=== PATIENT | female | born 1950 | race Caucasian/White ===

== ENCOUNTER 2020-09-13 22:07 | Observation (INO) | payer OTHER ==
--- OUTSIDE RECORDS SUMMARY | 2020-09-13 22:10 | XMS REPORT | Continuity of Care Document ---
:1950 Author Organization [facility] t Address [address] [place] [address] Dr. Zhang [address] [place] [id number] Care Team Providers Name Role Phone Unavailable Unavailable Unavailable Problems This patient has no known problems. Allergies, Adverse Reactions, Alerts This patient has no known allergies or adverse reactions. Medications This patient has no known medications. Procedures This patient has no known procedures. Results This patient has no known results.
[2020-09-13 23:56] LABS: Absolute Lymphocytes (CBC) 1.5 K/uL (0.7-4.9); Basophils % 1.3 % (0-1.3); Hematocrit 37.2 % (36.0-45.0); Lymphocytes % 25.3 % (15.3-44.8); MPV 7.3 fL (7.6-11.3); RBC Red Blood Cell Count 4.48 M/uL (3.86-4.86)
[2020-09-14 00:05] LABS: Protime INR 0.94
[2020-09-14] MEDS ORDERED: ASPIRIN 81 MG CHEWABLE TABLET ONE (00:12)
[2020-09-14] MEDS ORDERED: NITROGLYCERIN 0.4 MG/TAB SL ONE (00:13)
[2020-09-14] MEDS ORDERED: NA CHLORIDE 0.9% 500 ML ONE (00:13)
[2020-09-14 00:15] LABS: ALT/SGPT 25 U/L (12-78); AST/SGOT 25 U/L (15-37); Albumin 3.7 g/dL (3.4-5.0); Alkaline Phosphatase 109 U/L (45-117); BUN Blood Urea Nitrogen 21 mg/dL (7-18); Bicarbonate 29 mmol/L (21-32); Bilirubin Direct < 0.1 mg/dL (0-0.2); Bilirubin Total 0.2 mg/dL (0.2-1.0); Glucose Level 106 mg/dL (74-106); Magnesium 2.1 mg/dL (1.8-2.4); NT PRO-BNP 118 pg/mL (<125); Potassium 3.7 mmol/L (3.5-5.1); Protein, Total 7.1 g/dL (6.4-8.2); Sodium Level 141 mmol/L (136-145); Troponin (Emerg Dept Use Only) < 0.02 ng/mL (0.0-0.045)
[2020-09-14] MEDS ORDERED: ATROPINE SULF 1 MG/10 ML SYR IV ONE (00:26)
[2020-09-14] MEDS ORDERED: ONDANSETRON 4 MG/2 ML VIAL ONE (00:30)
[2020-09-14] MEDS ORDERED: MORPHINE 4 MG/ML SYR ONE (00:36)
[2020-09-14] MEDS ORDERED: NA CHLORIDE 0.9% 1,000 ML ONE (00:47)
--- NOTE | 2020-09-14 01:29 | ER ---
Nurse's Notes [facility] Name: Vandana Gar Age: 70 yrs Sex: Female : 1950 Arrival Date: 09/13/2020 Time: 22:10 Bed 25 Private MD: Diagnosis: Chest pain, unspecified Presentation: 09/13 22:34 Chief complaint: Patient states: Chest pain that began about 1 hour ago, reports lp1 epigastric pain, and upper back pain; Reports checked BP at home and 200 systolic. Coronavirus screen: Client denies travel out of the [place] in the last 14 days. At this time, the client does not indicate any symptoms associated with coronavirus-19. Ebola Screen: No symptoms or risks identified at this time. Risk Assessment: Do you want to hurt yourself or someone else? Patient reports no desire to harm self or others. Onset of symptoms was September 13, 2020 at 21:00. 22:34 Method Of Arrival: Wheelchair lp1 22:34 Acuity: LEIDA 3 lp1 22:38 Initial Sepsis Screen: Does the patient meet any 2 criteria? No. Patient's initial lp1 sepsis screen is negative. Does the patient have a suspected source of infection? No. Patient's initial sepsis screen is negative. Historical: - Allergies: 22:37 No Known Allergies; lp1 - PMHx: 22:37 hypertension; lp1 - PSHx: 22:37 hysterctomy; lp1 - Immunization history:: Adult Immunizations up to date. - Social history:: Smoking status: Patient denies any tobacco usage or history of. Screenin:50 Abuse screen: Denies threats or abuse. Denies injuries from another. Nutritional bs2 screening: No deficits noted. Tuberculosis screening: No symptoms or risk factors identified. Fall Risk None identified. Assessment: 22:50 General: Appears in no apparent distress. uncomfortable, obese, well groomed, well bs2 developed, well nourished, Behavior is calm, cooperative, appropriate for age. Pain: Complains of pain in xiphoid area Pain radiates to back Pain currently is 6 out of 10 on a pain scale. Pain began suddenly, 1 hour ago. Neuro: No deficits noted. Cardiovascular: Reports chest pain, Denies diaphoresis, nausea, palpitations, shortness of breath, Capillary refill < 3 seconds Chest pain is located in epigastric area radiates back. Respiratory: No deficits noted. GI: No deficits noted. : No deficits noted. EENT: No deficits noted. 09/14 00:15 Reassessment: Patient states symptoms have not improved. at 2359 alarm was noted at bs2 that pt was becoming bradycardic dropping to 38 from 60's, BP was also dropping 76 systolic pt became pale diaphoretic, both ER providers were immediately notified crash cart was retrieved and pt hooked to pad, atropine was also ordered and administered. . 00:30 Reassessment: Patient states feeling better. Patient states symptoms have improved. pt bs2 color is returning to normal, HR has sustained in the 70's since atropine. 01:30 Reassessment: Patient and/or family updated on plan of care and expected duration. Pain bs2 level reassessed. Patient states feeling better. Patient states symptoms have improved. pt feeling back to normal, pain has subsided, heart rate still in 70's. Vital Signs: 09/13 22:38 BP 197 / 81; Pulse 91; Resp 18; Temp 97.3(TE); Pulse Ox 100% on R/A; Weight 75.3 kg lp1 (R); Height 5 ft. 4 in. (162.56 cm); Pain 4/10; 23:45 BP 190 / 70; Pulse 54; Resp 13; Pulse Ox 100% on R/A; lp1 23:50 BP 199 / 81; Pulse 61; Resp 16; Pulse Ox 100% ; Pain 6/10; bs2 09/14 00:02 BP 73 / 62; Pulse 45; Resp 18; Pulse Ox 96% on R/A; lp1 00:08 BP 146 / 75; Pulse 71; Resp 14; Pulse Ox 98% on R/A; lp1 00:20 BP 165 / 83; Pulse 71; Resp 16; Pulse Ox 98% on R/A; lp1 01:00 BP 152 / 73; Pulse 71; Resp 12; Pulse Ox 97% on R/A; lp1 02:00 BP 139 / 64; Pulse 65; Resp 15; Pulse Ox 95% on R/A; lp1 09/13 22:38 Body Mass Index 28.49 (75.30 kg, 162.56 cm) lp1 ED Course: 09/13 22:10 Patient arrived in ED. bp1 22:37 Triage completed. lp1 22:37 Arm band placed on right wrist. lp1 22:39 Patient maintains SpO2 saturation greater than 95% on room air. lp1 22:50 Warm blanket given. bs2 23:00 Patient has correct armband on for positive identification. Placed in gown. Cardiac lp1 monitor on. Pulse ox on. NIBP on. 23:11 Danial Kelely PA is PHCP. cp 23:11 Akash De Leon MD is Attending Physician. cp 23:15 Inserted saline lock: 20 gauge in right antecubital area, using aseptic technique. bs2 23:25 Sherry Nunez, FLOYD is Primary Nurse. bs2 23:26 XRAY Chest (1 view) Sent. bs2 23:50 XRAY Chest (1 view) In Process Unspecified. EDMS 23:57 Lipase Sent. bs2 23:57 Basic Metabolic Panel Sent. bs2 23:57 CBC with Diff Sent. bs2 23:57 LFT's Sent. bs2 23:57 Magnesium Sent. bs2 23:57 NT PRO-BNP Sent. bs2 23:57 PT-INR Sent. bs2 23:57 Troponin (emerg Dept Use Only) Sent. bs2 09/14 00:59 CT Aorta for Dissection In Process Unspecified. EDMS 01:28 Trent Powers MD is Hospitalizing Provider. cp 03:30 No provider procedures requiring assistance completed. Patient admitted, IV remains in bs2 place. Administered Medications: 09/13 23:55 Drug: Nitroglycerin 0.4 mg Route: Sublingual; bs2 09/14 01:12 Follow up: Response: Adverse reaction, Physician notified; Blood pressure is lowered; bs2 Cardiac rhythm changed 09/13 23:56 Drug: NS 0.9% 500 ml Route: IV; Rate: 500 ml/hr; Site: right antecubital; bs2 09/14 00:31 Follow up: IV Status: Completed infusion bs2 09/13 23:57 Drug: Aspirin Chewable Tablet 324 mg Route: PO; bs2 09/14 01:12 Follow up: Response: No adverse reaction bs2 00:05 Drug: NS 0.9% 1000 ml Route: IV; Rate: 1000 ml; Site: left antecubital; bs2 05:48 Follow up: IV Status: Completed infusion bs2 00:05 Drug: Atropine 0.5 mg Route: IVP; Site: right antecubital; bs2 00:15 Follow up: Response: No adverse reaction bs2 00:08 Drug: Zofran (Ondansetron) 4 mg Route: IVP; Site: right antecubital; bs2 00:20 Follow up: Response: No adverse reaction bs2 Outcome: 01:29 Decision to Hospitalize by Provider. cp 04:00 Admitted to ER Hold. Please see [facility] for further documentation. lp1 04:00 Condition: stable 04:00 Instructed on the need for admit. 21:18 Patient left the ED. bb Signatures: Dispatcher [employer] EDMS Leila Sierra RN RN bb Giuliana Gonzalez RN RN lp1 Danial Kelley PA PA cp Paniauga, Brittany bp1 Smith, Bridget, RN RN bs2 Corrections: (The following items were deleted from the chart) 00:43 09/13 23:57 CORONAVIRUS+MR.LAB.BRZ drawn and sent. bs2 EDMS 09/14 06:31 06:24 Reassessment: Patient states symptoms have not improved. at 2359 alarm was noted bs2 at that pt was becoming bradycardic dropping to 38 from 60's, BP was also dropping 76 systolic pt became pale diaphoretic, both ER providers were immediately notified crash cart was retrieved and pt hooked to pad, atropine was also ordered and administered. . bs2
--- NOTE | 2020-09-14 01:29 | EDPHYS ---
Physician Documentation [facility] Name: Vandana Gar Age: 70 yrs Sex: Female : 1950 Arrival Date: 09/13/2020 Time: 22:10 Bed 25 Private MD: ED Physician Akash De Leon HPI: 09/13 23:20 This 70 yrs old Female presents to ER via Wheelchair with complaints of High cp Blood Pressure, Chest Pain > 30 y/o. 23:20 The patient or guardian reports chest pain that is located primarily in the substernal cp area, epigastric area. 23:20 Onset: today. The patient has elevated blood pressure and discovered this at home, with cp a home device. Onset: The symptoms/episode began/occurred today. The pain radiates to back. Associated signs and symptoms: Pertinent negatives: dizziness, headache, vomiting, weakness. The chest pain is described as constant. Duration: The patient or guardian reports a single episode, that is still ongoing, and unchanged. Historical: - Allergies: 22:37 No Known Allergies; lp1 - PMHx: 22:37 hypertension; lp1 - PSHx: 22:37 hysterctomy; lp1 - Immunization history:: Adult Immunizations up to date. - Social history:: Smoking status: Patient denies any tobacco usage or history of. ROS: 23:25 Cardiovascular: Positive for chest pain, of the lower chest, Negative for edema, cp palpitations. 23:25 Eyes: Negative for injury, pain, redness, and discharge. cp 23:25 Constitutional: Negative for body aches, fever, poor PO intake. 23:25 ENT: Negative for ear pain, sore throat, difficulty swallowing, difficulty handling secretions. 23:25 Respiratory: Negative for cough, shortness of breath, wheezing. 23:25 Abdomen/GI: Negative for vomiting, diarrhea, constipation. 23:25 Back: Positive for radiated pain. 23:25 Skin: Negative for rash. 23:25 Neuro: Negative for altered mental status, dizziness, headache, numbness, syncope, weakness. 23:25 All other systems are negative. Exam: 23:28 Constitutional: The patient appears in no acute distress, alert, awake, cp non-diaphoretic, non-toxic, well developed, well nourished, uncomfortable. 23:28 Head/Face: Normocephalic, atraumatic. cp 23:28 Eyes: Periorbital structures: appear normal, Conjunctiva: normal, no exudate, no injection, Sclera: no appreciated abnormality, Lids and lashes: appear normal, bilaterally. 23:28 ENT: External ear(s): are unremarkable, Nose: is normal, Mouth: Lips: moist, Oral mucosa: moist, Posterior pharynx: Airway: no evidence of obstruction, patent. 23:28 Neck: ROM/movement: is normal, is supple, without pain, no range of motions limitations. 23:28 Chest/axilla: Inspection: normal, Palpation: is normal, no crepitus, no tenderness. 23:28 Cardiovascular: Rate: normal, Rhythm: regular, Edema: is not appreciated, JVD: is not appreciated. 23:28 Respiratory: the patient does not display signs of respiratory distress, Respirations: normal, no use of accessory muscles, no retractions, labored breathing, is not present, Breath sounds: are clear throughout, no decreased breath sounds, no stridor, no wheezing. 23:28 Abdomen/GI: Inspection: abdomen appears normal, Bowel sounds: active, all quadrants, Palpation: abdomen is soft and non-tender, in all quadrants, rebound tenderness, is not appreciated, voluntary guarding, is not appreciated, involuntary guarding, is not appreciated. 23:28 Back: pain, that is mild, ROM is normal. 23:28 Skin: no rash present. 23:28 Neuro: Orientation: to person, place \T\ time. Mentation: is normal, Cerebellar function: is grossly normal, Motor: moves all fours, strength is normal, Sensation: is normal. 23:30 ECG was reviewed by the Attending Physician. cp Vital Signs: 22:38 BP 197 / 81; Pulse 91; Resp 18; Temp 97.3(TE); Pulse Ox 100% on R/A; Weight 75.3 kg lp1 (R); Height 5 ft. 4 in. (162.56 cm); Pain 4/10; 23:45 BP 190 / 70; Pulse 54; Resp 13; Pulse Ox 100% on R/A; lp1 23:50 BP 199 / 81; Pulse 61; Resp 16; Pulse Ox 100% ; Pain 6/10; bs2 09/14 00:02 BP 73 / 62; Pulse 45; Resp 18; Pulse Ox 96% on R/A; lp1 00:08 BP 146 / 75; Pulse 71; Resp 14; Pulse Ox 98% on R/A; lp1 00:20 BP 165 / 83; Pulse 71; Resp 16; Pulse Ox 98% on R/A; lp1 01:00 BP 152 / 73; Pulse 71; Resp 12; Pulse Ox 97% on R/A; lp1 02:00 BP 139 / 64; Pulse 65; Resp 15; Pulse Ox 95% on R/A; lp1 09/13 22:38 Body Mass Index 28.49 (75.30 kg, 162.56 cm) lp1 MDM: 09/13 23:12 Patient medically screened. cp 23:35 Differential diagnosis: abnormal EKG, acute myocardial infarction, acute pericarditis, cp cholecystitis, Cholelithiasis hypertensive crisis, Malignant HTN, pancreatitis, pneumothorax, pulmonary embolus, stable angina, thoracic aortic disection, unstable angina. 09/14 00:45 The patient was given aspirin in the Emergency Department. cp 01:53 Data reviewed: vital signs, nurses notes, lab test result(s), EKG, radiologic studies, cp CT scan, plain films, and as a result, I will admit patient. 09/13 23:11 Order name: Basic Metabolic Panel; Complete Time: 00:22 cp 09/14 00:24 Interpretation: Normal except: BUN 21; GFR 56. cp 09/13 23:11 Order name: CBC with Diff; Complete Time: 00:22 cp 09/14 00:24 Interpretation: Normal except: MPV 7.3. cp 09/13 23:11 Order name: LFT's; Complete Time: 00:22 cp 09/13 23:11 Order name: Magnesium; Complete Time: 00:22 cp 09/13 23:11 Order name: NT PRO-BNP; Complete Time: 00:22 cp 09/13 23:11 Order name: PT-INR; Complete Time: 00:24 cp 09/13 23:11 Order name: Troponin (emerg Dept Use Only); Complete Time: 00:22 cp 09/13 23:26 Order name: Lipase; Complete Time: 00:22 cp 09/14 01:42 Order name: SARS-COV-2 RT PCR; Complete Time: 01:53 EDMS 09/14 01:53 Interpretation: Results reviewed. cp 09/14 06:24 Order name: Urinalysis [facility] 09/14 06:44 Order name: Basic Metabolic Panel [facility] 09/14 06:47 Order name: Troponin I [facility] 09/14 06:47 Order name: Lipid Profile [facility] 09/13 23:11 Order name: XRAY Chest (1 view) 09/13 23:11 Order name: EKG; Complete Time: 23:12 cp 09/13 23:11 Order name: Cardiac monitoring; Complete Time: 23:57 cp 09/14 00:23 Order name: CT Aorta for Dissection 09/14 06:47 Order name: T4 Free [facility] 09/14 06:47 Order name: Lipase [facility] 09/14 06:47 Order name: Thyroid Stimulating Hormone [facility] 09/14 08:00 Order name: Urine Microscopic Only [facility] 09/14 11:28 Order name: Troponin I [facility] 09/14 18:07 Order name: Troponin I [facility] 09/13 23:11 Order name: EKG - Nurse/Tech; Complete Time: 23:26 cp 09/13 23:11 Order name: IV Saline Lock; Complete Time: 23:57 cp 09/13 23:11 Order name: Labs collected and sent; Complete Time: 23:57 09/13 23:11 Order name: O2 Per Protocol; Complete Time: 23:26 cp 09/13 23:11 Order name: O2 Sat Monitoring; Complete Time: 23:26 cp EC/24 23:30 Rate is 70 beats/min. Rhythm is regular. SC interval is normal. QRS interval is normal. cp QT interval is normal. T waves are Inverted in lead aVR. Interpreted by me. Reviewed by me. Administered Medications: 23:55 Drug: Nitroglycerin 0.4 mg Route: Sublingual; bs2 09/14 01:12 Follow up: Response: Adverse reaction, Physician notified; Blood pressure is lowered; bs2 Cardiac rhythm changed 09/13 23:56 Drug: NS 0.9% 500 ml Route: IV; Rate: 500 ml/hr; Site: right antecubital; bs2 09/14 00:31 Follow up: IV Status: Completed infusion bs2 09/13 23:57 Drug: Aspirin Chewable Tablet 324 mg Route: PO; bs2 09/14 01:12 Follow up: Response: No adverse reaction bs2 00:05 Drug: NS 0.9% 1000 ml Route: IV; Rate: 1000 ml; Site: left antecubital; bs2 05:48 Follow up: IV Status: Completed infusion bs2 00:05 Drug: Atropine 0.5 mg Route: IVP; Site: right antecubital; bs2 00:15 Follow up: Response: No adverse reaction bs2 00:08 Drug: Zofran (Ondansetron) 4 mg Route: IVP; Site: right antecubital; bs2 00:20 Follow up: Response: No adverse reaction bs2 Disposition: 09/15 04:31 Co-signature as Attending Physician, Akash De Leon MD. [email or web address] Disposition Summary: 09/14/20 01:29 Hospitalization Ordered Hospitalization Status: Observation cp Provider: Trent Powers cp Condition: Stable cp Problem: new cp Symptoms: have improved cp Bed/Room Type: Standard cp Location: Telemetry/MedSurg (observation)(09/14/20 19:23) cg Room Assignment: [facility](09/14/20 19:23) Diagnosis - Chest pain, unspecified cp Forms: - Medication Reconciliation Form cp - SBAR form cp Signatures: Dispatcher [employer] EDMS Giuliana Gonzalez RN RN lp1 Danial Kelley PA PA cp Dominique Scott, RN RN Akash De Leon MD MD [email or web address] Sherry Nunez RN RN bs2 Corrections: (The following items were deleted from the chart) 09/14 00:43 09/13 23:26 CORONAVIRUS+MR.LAB.BRZ ordered. [facility] 09/14 03:37 01:29 Telemetry/MedSurg (observation) cp cg 03:37 01:29 cp cg 19:23 03:37 [facility] ER HOLD cg cg 19:23 03:37 ERHOLD- cg cg
--- NOTE | 2020-09-14 02:52 | P.HP ---
Certification for Inpatient Patient admitted to: Observation With expected LOS: <2 Midnights Patient will require the following post-hospital care: None Practitioner: I am a practitioner with admitting privileges, knowledge of patient current condition, hospital course, and medical plan of care. Services: Services provided to patient in accordance with Admission requirements found in Title 42 Section 412.3 of the Code of Federal Regulations <RubymonicaZi - Last Filed: 09/14/20 02:48> Patient History Date of Service: 09/14/20 Primary Care Provider: Dr. Treadwell Reason for admission: Chest pain History of Present Illness: 70-year-old female with history of hypertension presents emergency department for chest pain. 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 Patient was evaluated in the emergency department, EKG without ST elevations, chest x-ray unremarkable, labs also unremarkable. Patient was noted to be hypertensive with systolic around 200 upon arrival. Patient was given nitroglycerin in the emergency department p.o. and developed bradycardia, hypotension. Patient recovered from this well and vital signs are currently stable and chest pain- free. Initial troponin negative. Patient had CT dissection protocol which demonstrated numerous bilateral subpleural pulmonary nodules up to 4 mm which are likely infectious or inflammatory, no routine follow-up recommended also noted large right thyroid nodule, CT abdomen pelvis demonstrates gastric thickening suggestive of mild gastritis or peristalsis as well as mild thickening of the colon at the hepatic flexure. This was all discussed with patient. ED per wishes to me for further evaluation and management of chest pain. Patient reports last stress test approximately 3 years ago. Has never had heart catheterization. - Past Medical/Surgical History -: Hypertension -: Hysterectomy -: Parathyroidectomy -: Ankle surgery -: Carpal tunnel surgery Psychosocial/ Personal History: Retired, lives at home with - Family History Father -: Hypertension, Cancer Mother -: Heart disease, Cancer Brother -: Cancer - Social History Smoking Status: Never smoker Alcohol use: No CD- Drugs: No Caffeine use: Yes Place of Residence: Home <Zi Miguel - Last Filed: 09/14/20 02:48> Date of Service: 09/14/20 <Trent Powers - Last Filed: 09/14/20 16:33> Review of Systems 10-point ROS is otherwise unremarkable Cardiovascular: Chest Pain, As per HPI <Zi Miguel - Last Filed: 09/14/20 02:48> Physical Examination - Physical Exam General: Alert, In no apparent distress, Oriented x3 HEENT: Atraumatic, PERRLA, Mucous membr. moist/pink Neck: Supple, 2+ carotid pulse no bruit, No LAD Respiratory: Clear to auscultation bilaterally, Normal air movement Cardiovascular: Regular rate/rhythm, Normal S1 S2 Gastrointestinal: Normal bowel sounds, No tenderness Musculoskeletal: No tenderness Integumentary: No rashes Neurological: Normal speech, Normal strength at 5/5 x4 extr, Normal tone, Normal affect - Studies Laboratory Data (last 24 hrs) 09/13/20 23:46: Lipase 212 09/13/20 23:46: PT 10.8, INR 0.94 09/13/20 23:46: WBC 5.80, Hgb 12.4, Hct 37.2, Plt Count 271 09/13/20 23:46: Sodium 141, Potassium 3.7, BUN 21 H, Creatinine 0.98, Glucose 106, Magnesium 2.1, Total Bilirubin 0.2, AST 25, ALT 25, Alkaline Phosphatase 109 <Zi Miguel - Last Filed: 09/14/20 02:48> - Studies Laboratory Data (last 24 hrs) 09/13/20 23:46: Lipase 212 09/13/20 23:46: PT 10.8, INR 0.94 09/13/20 23:46: WBC 5.80, Hgb 12.4, Hct 37.2, Plt Count 271 09/13/20 23:46: Sodium 141, Potassium 3.7, BUN 21 H, Creatinine 0.98, Glucose 106, Magnesium 2.1, Total Bilirubin 0.2, AST 25, ALT 25, Alkaline Phosphatase 109 <Trent Powers - Last Filed: 09/14/20 16:33> Assessment and Plan - Plan Assessment: Chest pain rule out ACS Hypertension Incidental findings including pulmonary nodules measuring up to 4 mm, large right thyroid nodule, mild wall thickening of the colon at the hepatic flexure Plan: Chest pain rule out ACS: Trend troponins, monitor on telemetry, cardiology consult in place. Continue with daily aspirin, statin, beta-aries therapy. Obtain continue other home medications for hypertension. Gastritis noted on CT scan, will also treat with Protonix. Appreciate further input from cardiology, last stress test approximately 3 years ago, patient has never had heart catheterization. Hypertension: Obtain continue medications, adjust as necessary. Patient reports a few episodes similar in the past with uncontrolled hypertension for unknown reason which seemed to resolve. Incidental findings including pulmonary nodules measuring up to 4 mm, large right thyroid nodule, mild wall thickening of the colon at the hepatic flexure: These were all discussed with patient, recommend outpatient ultrasound of thyroid and colonoscopy, patient has colonoscopy scheduled for next year. Pulmonary nodules mentioned no recommended follow-up at this time. DVT PPX: Code status: Discharge Plan: Home Plan to discharge in: 24 Hours - Advance Directives Does patient have a Living Will: No Does patient have a Durable POA for Healthcare: No - Code Status/Comfort Care Code Status Assessed: Yes (Full code) Critical Care: No Time Spent Managing Pts Care (In Minutes): 55 <Zi Miguel - Last Filed: 09/14/20 02:48> - Plan Patient seen and examined this morning Having mild left chest discomfort, trop negative x 2 vitals stable nothing seems to aggravate this pain CT with incidental multiple pulm nodules, no PE she does have risk factors for ACS Cardiology recommends to obtain stress test tomorrow <Trent Powers - Last Filed: 09/14/20 16:33>
[2020-09-14] MEDS ORDERED: SODIUM CHLORIDE 0.9% 10ML INJ IV PRN (03:51)
[2020-09-14] MEDS ORDERED: ACETAMINOPHEN 500 MG TAB PO PRN (03:51)
[2020-09-14] MEDS ORDERED: MORPHINE 2 MG/ML SYR IV PRN (03:51)
[2020-09-14] MEDS ORDERED: ONDANSETRON 4 MG/2 ML VIAL IV PRN (03:51)
[2020-09-14] MEDS ORDERED: METOPROLOL TAR 25 MG TAB PO SCH (06:00)
[2020-09-14 06:20] LABS: Urine Appearance CLEAR (Clear); Urine Bilirubin NEGATIVE (Negative); Urine Blood NEGATIVE (Negative); Urine Color YELLOW (Yellow); Urine Glucose NEGATIVE (Negative); Urine Protein NEGATIVE (Negative); Urine Specific Gravity 1.015 (1.005-1.030); Urine Urobilinogen 0.2 mg/dL (0.2-1.0)
[2020-09-14 06:24] LABS: Urine Microscopic Reflex ORDER UMIC
[2020-09-14 06:47] LABS: Thyroid Stimulating Hormone 1.58 uIU/mL (0.360-3.740); Troponin I 0.02 ng/mL (0.0-0.045)
[2020-09-14] MEDS ORDERED: PANTOPRAZOLE 40 MG INJ ONE (07:43)
[2020-09-14] MEDS ORDERED: ASPIRIN EC 81 MG TAB PO ONE (07:43)
[2020-09-14] MEDS ORDERED: ENOXAPARIN 40 MG/0.4 ML SQ ONE (07:43)
--- NOTE | 2020-09-14 07:52 | RAD REPORT ---
EXAM DESCRIPTION: RAD - Chest Single View - 09/13/2020 11:50 pm CLINICAL HISTORY: CHEST PAIN COMPARISON: No comparisons FINDINGS: No evidence of edema or pneumonia. Mild cardiomegaly.No acute osseous abnormality. No sign ificant pleural effusions or pneumothorax. IMPRESSION: No acute cardiopulmonary disease.
[2020-09-14] MEDS: ASPIRIN EC 81 MG TAB PO SCH (07:57)
[2020-09-14] MEDS: PANTOPRAZOLE 40 MG INJ IVP SCH (07:57)
[2020-09-14] MEDS: ENOXAPARIN 40 MG/0.4 ML SQ SCH (07:57)
[2020-09-14 08:00] LABS: Urine Bacteria <20 /HPF (<20); Urine RBC <5 /HPF (NONE SEEN)
[2020-09-14] MEDS: hydroCHLOROthiazide 12.5 MG CAP PO SCH (08:02)
[2020-09-14] MEDS ORDERED: hydroCHLOROthiazide 25 MG TAB ONE (08:24)
--- NOTE | 2020-09-14 14:48 | CON ---
Date of Consultation: 09/14/2020 Reason For Consultation: Chest pain. History Of Present Illness: A 70-year-old female presented to the emergency room with chest pain, wa s sudden, pressure-like, radiating to both arms, lasted for about 2 hours, and then her blood pressur e was very high on arrival about 200 and given nitroglycerin, developed bradycardia and hypertension on that. She is chest-pain free at this moment. Denies having any shortness of breath, nausea, or v omiting. Had a stress test about 3 years ago as per report. Past Medical History: As outlined above with HPI. Medications: Refer to reconciliation sheet for detailed list. Allergies: NITROGLYCERINE PER CHART. Family History: Coronary artery disease on mother's side. Review of Systems: All systems reviewed and they are negative except for what is mentioned in the HPI. Social History: Does not smoke or drink. Does not use any drugs. Physical Examination: Vital Signs: Temperature is 98.0, pulse 63, breathing at 12, blood pressure is 134/62, saturating 97 %. General: Pleasant elderly female, in no distress. Head and Neck: Pupils are equal, reactive to light. Intact eye movements. No JVD. No cervical lym phadenopathy. Neck: Supple. Thyroid is not enlarged. Lungs: Clear to auscultation bilaterally. No rhonchi, rales, or crackles. No accessory muscle use. Heart: Regular rate and rhythm. No extra sounds. Abdomen: Soft, nontender. Bowel sounds positive. No organomegaly. No rigidity or rebound. Extremities: No edema, clubbing, or cyanosis. Intact pulses. Skin: No rash. Neurologic: Alert, awake, oriented x3. No acute focal deficits appreciated. Investigations: Troponin is less than 0.02. Creatinine 0.87. Hemoglobin is 12.4. EKG without acut e specific abnormalities. Assessment And Plan: Chest pain. This could be indicative of unstable angina. I recommend exercise nuclear stress test and echocardiogram prior to discharge and further plan accordingly. Start on as pirin, beta-aries, and high-dose statin and further trend troponin. Thank you for the consult. /SAMI Voice ID: [id number] Report ID: [id number]
--- NOTE | 2020-09-14 17:21 | RAD REPORT ---
EXAM DESCRIPTION: CT - Angio Aorta For Dissection - 09/14/2020 6:04 am COMPARISON: None. CLINICAL HISTORY: CHEST PAIN TECHNIQUE: CTA of the chest, abdomen and pelvis was acquired with IV contrast material. Coronal and sagittal reconstructions were obtained. 3D arterial reconstructions were performed at a separate work station. Automated exposure control was utilized on this examination as a dose lowering technique. CTA FINDINGS: No dissection or aneurysm. No occlusion or significant stenosis. Mild multivessel calc ified atherosclerosis. NONVASCULAR CHEST FINDINGS: Heart and mediastinum: Heart size is normal. No lymphadenopathy. Calcifi ed right hilar granulomas are noted. Thyroid gland: 4.1 cm right thyroid nodule. Lungs: Numerous bilateral subpleural pulmonary nodules measure up to 4 mm. Airways: No filling defects. No bronchiectasis. Pleura: No pneumothorax. No significant pleural effusion. Musculoskeletal and soft tissues: Within normal limits for age. CHEST IMPRESSION: 1. Numerous bilateral subpleural pulmonary nodules measure up to 4 mm are likely i nfectious or inflammatory. No routine follow-up imaging is recommended based on size. 2. Large right thyroid nodule. Recommend thyroid ultrasound. NONVASCULAR ABDOMEN & PELVIS FINDINGS: Liver: Small hepatic hypodensities likely represent benign cy sts or hemangiomas. Gallbladder and biliary: Normal gallbladder. Unremarkable biliary tree. Pancreas: Normal. Spleen: Normal. Kidneys and adrenal glands: Normal adrenal glands. Small right renal cyst. Stomach and Small Bowel: Mild gastric antral wall thickening is present. Normal small bowel. Urinary bladder: Normal. Uterus and Adnexa: Hysterectomy. Colon and Appendix: Moderate sigmoid diverticulosis. Mild wall thickening of the colon at the hepatic flexure. No evidence of appendicitis. Peritoneal cavity: No ascites or free air. Retroperitoneum and lymph nodes: Normal. Musculoskeletal and soft tissues: Soft tissues are unremarkable. Lumbar spondylosis. No aggressive jesusita ne lesions. No compression fracture. ABDOMEN AND PELVIS IMPRESSION: 1. Mild gastric antral wall thickening may be due to peristalsis or m ild gastritis. 2. Mild wall thickening of the colon at the hepatic flexure is likely due to decompression, however c olonoscopy is recommended if not recently performed. Moderate diverticulosis of the sigmoid colon is also present. Electronically signed by: Arsenio Rodriguez MD 09/14/2020 1:22 AM CDT Due to temporary technical issues with the PACS/Fluency reporting system, reports are being signed by the in house radiologists without review as a courtesy to insure prompt reporting. The interpreting radiologist is fully responsible for the content of the report.
[2020-09-14 20:17] VITALS: O2SAT 97
[2020-09-14] MEDS ORDERED: ATORVASTATIN 20 MG TAB ONE (20:44)
[2020-09-14] MEDS ORDERED: ATORVASTATIN 20 MG TAB PO SCH (21:00)
[2020-09-14 21:42] VITALS: BMI 28.0
[2020-09-15 06:43] LABS: Absolute Lymphocytes (CBC) 1.7 K/uL (0.7-4.9); Hematocrit 35.2 % (36.0-45.0); Lymphocytes % 26.1 % (15.3-44.8); MPV 7.5 fL (7.6-11.3); RBC Red Blood Cell Count 4.22 M/uL (3.86-4.86)
[2020-09-15 07:13] LABS: Albumin 3.4 g/dL (3.4-5.0); Bilirubin Total 0.4 mg/dL (0.2-1.0); Potassium 3.9 mmol/L (3.5-5.1); Protein, Total 6.5 g/dL (6.4-8.2)
[2020-09-15] MEDS: hydroCHLOROthiazide 12.5 MG CAP PO SCH (08:36)
[2020-09-15] MEDS: ASPIRIN EC 81 MG TAB PO SCH (08:36)
[2020-09-15] MEDS: ENOXAPARIN 40 MG/0.4 ML SQ SCH (08:37)
[2020-09-15] MEDS: PANTOPRAZOLE 40 MG INJ IVP SCH (08:37)
[2020-09-15 13:57] VITALS: BP 141/80; TEMP 97.6
--- NOTE | 2020-09-15 17:10 | P.DS ---
Admission Date: 09/14/20 Discharge Date: 09/15/20 Primary Care Provider: Dr. Treadwell Disposition: ROUTINE DISCHARGE Discharge Condition: GOOD Reason for Admission: Chest pain Consultations: Cardiology - Dr. Aguilera. Dr. Parry Procedures: Chest Single View - 09/13/2020 11:50 pm FINDINGS: No evidence of edema or pneumonia. Mild cardiomegaly.No acute osseous abnormality. No significant pleural effusions or pneumothorax. IMPRESSION: No acute cardiopulmonary disease. CT - Angio Aorta For Dissection - 09/14/2020 6:04 am CTA FINDINGS: No dissection or aneurysm. No occlusion or significant stenosis. Mild multivessel calcified atherosclerosis. NONVASCULAR CHEST FINDINGS: Heart and mediastinum: Heart size is normal. No lymphadenopathy. Calcified right hilar granulomas are noted. Thyroid gland: 4.1 cm right thyroid nodule. Lungs: Numerous bilateral subpleural pulmonary nodules measure up to 4 mm. Airways: No filling defects. No bronchiectasis. Pleura: No pneumothorax. No significant pleural effusion. Musculoskeletal and soft tissues: Within normal limits for age. CHEST IMPRESSION: 1. Numerous bilateral subpleural pulmonary nodules measure up to 4 mm are likely infectious or inflammatory. No routine follow-up imaging is recommended based on size. 2. Large right thyroid nodule. Recommend thyroid ultrasound. NONVASCULAR ABDOMEN & PELVIS FINDINGS: Liver: Small hepatic hypodensities likely represent benign cysts or hemangiomas. Gallbladder and biliary: Normal gallbladder. Unremarkable biliary tree. Pancreas: Normal. Spleen: Normal. Kidneys and adrenal glands: Normal adrenal glands. Small right renal cyst. Stomach and Small Bowel: Mild gastric antral wall thickening is present. Normal small bowel. Urinary bladder: Normal. Uterus and Adnexa: Hysterectomy. Colon and Appendix: Moderate sigmoid diverticulosis. Mild wall thickening of the colon at the hepatic flexure. No evidence of appendicitis. Peritoneal cavity: No ascites or free air. Retroperitoneum and lymph nodes: Normal. Musculoskeletal and soft tissues: Soft tissues are unremarkable. Lumbar spondylosis. No aggressive bone lesions. No compression fracture. ABDOMEN AND PELVIS IMPRESSION: 1. Mild gastric antral wall thickening may be due to peristalsis or mild gastritis. 2. Mild wall thickening of the colon at the hepatic flexure is likely due to decompression, however colonoscopy is recommended if not recently performed. Moderate diverticulosis of the sigmoid colon is also present. Problem List Chest pain, possible Unstable angina Hypertension Incidental findings including pulmonary nodules measuring up to 4 mm, large right thyroid nodule, mild wall thickening of the colon at the hepatic flexure Brief History of Present Illness: 70-year-old female with history of hypertension presents emergency department for chest pain. 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 Patient was evaluated in the emergency department, EKG without ST elevations, chest x-ray unremarkable, labs also unremarkable. Patient was noted to be hypertensive with systolic around 200 upon arrival. Patient was given nitroglycerin in the emergency department p.o. and developed bradycardia, hypotension. Patient recovered from this well and vital signs are currently stable and chest pain- free. Initial troponin negative. Patient had CT dissection protocol which demonstrated numerous bilateral subpleural pulmonary nodules up to 4 mm which are likely infectious or inflammatory, no routine follow-up recommended also noted large right thyroid nodule, CT abdomen pelvis demonstrates gastric thickening suggestive of mild gastritis or peristalsis as well as mild thickening of the colon at the hepatic flexure. This was all discussed with patient. ED per wishes to me for further evaluation and management of chest pain. Patient reports last stress test approximately 3 years ago. Has never had heart catheterization. Hospital Course: Troponins were trended and remained negative. Patient's chest pain had resolved. Cardiology was consulted, recommended treadmill stress test and echocardiogram prior to discharge. These testing were performed and preliminary reads were okay. Patient was deemed stable for discharge. Cardiology recommended follow-up in their office in the next 1 to 2 weeks to review echocardiogram results. No changes were made to her medications Follow-up with your PCP in 3-[address] was notable for incidental findings of small pulmonary nodules, and a thyroid nodule. Thyroid studies were normal. Vital Signs/Physical Exam: Physical Exam General: Alert, In no apparent distress, Oriented x3 HEENT: Atraumatic, PERRLA, Mucous membr. moist/pink Neck: Supple, 2+ carotid pulse no bruit, No LAD Respiratory: Clear to auscultation bilaterally, Normal air movement Cardiovascular: Regular rate/rhythm, Normal S1 S2 Gastrointestinal: soft, nontender, nondistended Musculoskeletal: No tenderness Integumentary: No rashes Neurological: resting tremor affecting most of body Temp Pulse Resp BP Pulse Ox 97.6 F 65 17 141/80 H 97 09/15/20 12:00 09/15/20 12:00 09/15/20 12:00 09/15/20 12:00 09/15/20 12:00 Laboratory Data at Discharge: WBC 6.50 K/uL (4.3-10.9) 09/15/20 06:20 Hgb 11.7 g/dL (12.0-15.0) L 09/15/20 06:20 Hct 35.2 % (36.0-45.0) L 09/15/20 06:20 Plt Count 259 K/uL (152-406) 09/15/20 06:20 PT 10.8 SECONDS (9.5-12.5) 09/13/20 23:46 INR 0.94 09/13/20 23:46 Sodium 145 mmol/L (136-145) 09/15/20 06:20 Potassium 3.9 mmol/L (3.5-5.1) 09/15/20 06:20 BUN 14 mg/dL (7-18) 09/15/20 06:20 Creatinine 0.95 mg/dL (0.55-1.3) 09/15/20 06:20 Glucose 86 mg/dL (74-106) 09/15/20 06:20 Magnesium 2.1 mg/dL (1.8-2.4) 09/13/20 23:46 Total Bilirubin 0.4 mg/dL (0.2-1.0) 09/15/20 06:20 AST 20 U/L (15-37) 09/15/20 06:20 ALT 23 U/L (12-78) 09/15/20 06:20 Alkaline Phosphatase 86 U/L (45-117) 09/15/20 06:20 Troponin I < 0.02 ng/mL (0.0-0.045) 09/14/20 23:18 Triglycerides 73 mg/dL (<150) 09/14/20 05:36 Cholesterol 185 mg/dL (<200) 09/14/20 05:36 HDL Cholesterol 68 mg/dL (40-60) H 09/14/20 05:36 Cholesterol/HDL Ratio 2.72 09/14/20 05:36 Lipase 135 U/L (73-393) 09/14/20 05:36 Home Medications: RX: Amlodipine [Norvasc*] 5 mg PO NOON 09/14/20 RX: Aspirin [Lo-Dose Aspirin EC] 81 mg PO DAILY 09/14/20 RX: Fish Oil/Dha/Epa [Fish Oil 1,200 mg Fish Oil] 1 each PO DAILY 09/14/20 RX: Fluticasone [Flonase 50MCG Nasal [place] [place]*] 2 sprays NS DAILY 09/14/20 RX: Garlic 1 each PO DAILY 09/14/20 RX: Loratadine [Claritin*] 10 mg PO DAILY 09/14/20 RX: Losartan Potassium 100 mg PO DAILY 09/14/20 RX: Multivitamin 1 each PO DAILY 09/14/20 RX: Red Yeast Rice 600 mg PO DAILY 09/14/20 RX: Turmeric Root Extract [Turmeric Curcumin] 500 mg PO DAILY 09/14/20 RX: hydroCHLOROthiazide [Hydrochlorothiazide*] 12.5 mg PO DAILY 09/14/20 Physician Discharge Instructions: PROBLEM: Chest pain GOAL: Clear understanding of disease process INSTRUCTIONS: - Your chest pain was evaluated with CT scan, heart enzymes (troponin), heart monitor, treadmill stress test, and echocardiogram. It is unlikely that this was due to your heart. - Your CT did show a few small pulmonary nodules incidentally - recommend follow up with your Primary Care Provider, should have a repeat CT scan in the near future. - CT did show some signs of possible inflammation of your stomach. Recommend a daily antacid. - A thryoid nodule was seen as well. Your thyroid levels were normal. Recommend follow up with your PCP, may need to have further testing with an ultrasound. Follow up with your Primary Care Provider in 3-5 days. Follow up with Cardiology in the next 1-2 weeks to review echocardiogram results. Return to the ER if your symptoms worsen. Call the 2nd floor at if you have any questions regarding your hospital stay. Diet: Heart healthy Activity: As tolerated IMMUNIZATION Influenza Vaccine Indicated: Influenza Vaccine Given: Date Given: Pneumonia Vaccine Indicated: No Pneumonia Vaccine Given: Date Given: Diet: AHA Activity: Ad leatha Followup: German Parry MD [ACTIVE - CAN ADMIT] - 1-2 Weeks (Follow up in office in 1-2 weeks. Call to schedule an appointment. ) Time spent managing pt's care (in minutes): 45
--- NOTE | 2020-09-16 09:28 | ECHO ---
HEIGHT: 5 ft 4 in WEIGHT: 163 lb 6.4 oz DATE OF STUDY: 09/15/[address]: Trent Powers MD 2-DIMENSIONAL: YES M.MODE: YES DOPPLER: YES COLOR FLOW: YES TDS: PORTABLE: DEFINITY: BUBBLE STUDY: DIAGNOSIS: CHEST PAIN CARDIAC HISTORY: CATHERIZATION: NO SURGERY: NO PROSTHETIC VALVE: NO PACEMAKER: NO MEASUREMENTS (cm) DIASTOLIC (NORMALS) SYSTOLIC (NORMALS) IVSd 0.9 (0.6-1.2) LA Diam 2.4 (1.9-4.0) LVEF 62% LVIDd 3.3 (3.5-5.7) LVIDs 2.2 (2.0-3.5) %FS 32% LVPWd 1.0 (0.6-1.2) Ao Diam 2.5 (2.0-3.7) 2 DIMENSIONAL ASSESSMENT: RIGHT ATRIUM: NORMAL LEFT ATRIUM: NORMAL RIGHT VENTRICLE: NORMAL LEFT VENTRICLE: NORMAL TRICUSPID VALVE: MILD TRICUSPID REGURGITATION MITRAL VALVE: MILD MITRAL REGURGITATION PULMONIC VALVE: NORMAL AORTIC VALVE: NORMAL PERICARDIAL EFFUSION: SMALL AORTIC ROOT: NORMAL LEFT VENTRICULAR WALL MOTION: NORMAL DOPPLER/COLOR FLOW: SEE BELOW COMMENTS: NORMAL LEFT VENTRICULAR EJECTION FRACTION 55-60%. NORMAL WALL MOTION. MILD MITRAL REGURGITATION. MILD TRICUSPID REGURGITATION. SMALL PERICARDIAL EFFUSION. TECHNOLOGIST: MONICA BROCK
--- NOTE | 2020-09-16 09:50 | TREADMILL ---
70% H.R.: 104 85% H.R.: 126 90% H.R.: 133 100% H.R.: 148 DX: CHEST PAIN Date of Study: 09/15/2020 Ht: 5' 4 " Wt: 163 lb 6.4 oz Consulting Physician: ERYN MEDICATIONS: ASPIRIN, LIPITOR, LOVENOX HISTORY: PHYSICIAL EXAMINATION: RESTING B.P.: 150/74 RESTING H.R.: 73 RESTING EKG: NORMAL SINUS RHYTHM, WITHIN NORMAL LIMITS PROTOCOL: BOBBY ROUTINE EXERCISE TIME: 2:49 MAXIMUM HEART RATE: 119 % OF PREDICTED B.P. AT PEAK STRESS: 214/64 H.R. AT 1 MINUTE POST EXERCISE: 133 IMPRESSION: BOBBY ROUTINE TREADMILL STRESS TEST PERFORMED. NO COMPLAINTS OF CHEST PAIN. NO HEADACHE OR DIZZINESS. NO SUPRAVENTRICULAR TACHYCARDIA OR VENTRICULAR TACHYCARDIA. NO ARRHYTHMIAS. NO EKG CHANGES OF ISCHEMIA.
== END 2020-09-15 18:06 | disposition home or self-care (01) ==
LOC: ER 22:07 → ERHOLD 09-14 03:11 → 2ND 09-14 20:40
PROVIDERS: ADMIT Hospitalist; ATTEND Hospitalist
DX: R07.9 Chest pain, unspecified (principal); I10 Essential (primary) hypertension; E04.1 Nontoxic single thyroid nodule; R91.8 Other nonspecific abnormal finding of lung field; E89.2 Postprocedural hypoparathyroidism; K57.30 Diverticulosis of large intestine without perforation or abscess without bleeding; Z20.822 Contact with and (suspected) exposure to COVID-19; Z88.8 Allergy status to other drugs, medicaments and biological substances; Z90.710 Acquired absence of both cervix and uterus; Z82.49 Family history of ischemic heart disease and other diseases of the circulatory system; Z80.9 Family history of malignant neoplasm, unspecified
CPT/HCPCS: 96361; 93017; 93005; 93306; 87088; 85025 ×2; 87086; 80048 ×2; 36415 ×2; 83735; 85610; 80061; 80076; 84443; 84484 ×5; 84439; 83690 ×2; 80053; 83880; 71275; 74175; 71045; 96375; 96374; 99285; U0003; Q9967; C9113 ×2; J1650 ×2; J7030; J2405; G0378 ×3; 81003; 81015

== ENCOUNTER 2021-04-01 07:04 | Day surgery (SDC) | payer OTHER ==
[2021-03-31 14:18] LABS: Absolute Lymphocytes (CBC) 1.3 K/uL (0.7-4.9); Hematocrit 41.7 % (36.0-45.0); Lymphocytes % 22.3 % (15.3-44.8); MPV 7.5 fL (7.6-11.3); RBC Red Blood Cell Count 4.81 M/uL (3.86-4.86)
[2021-03-31 14:34] LABS: Potassium 3.9 mmol/L (3.5-5.1)
--- NOTE | 2021-03-31 14:38 | RAD REPORT ---
EXAM DESCRIPTION: RAD - Chest Pa And Lat (2 Views) - 03/31/2021 2:28 pm CLINICAL HISTORY: pre op for surgery, hypertension COMPARISON: Portable September 13 TECHNIQUE: Frontal and lateral views of the chest were obtained. FINDINGS: The lungs are clear of a peripheral mass consolidation. No failure or volume overload. Int erstitial pattern is similar to comparison. Heart size is normal and central vasculature is within normal limits. No pleural effusion or pneumothorax seen. No acute bony finding noted. No aortic ab normality. IMPRESSION: No acute cardiopulmonary process. No significant change from comparison study.
[2021-04-01] MEDS ORDERED: BUPIVACAINE 0.5% PF 10 ML VIAL ONE (07:09)
[2021-04-01] MEDS ORDERED: Ringers Lactate 1,000 ML IV ONE (07:10)
[2021-04-01] MEDS ORDERED: CEFAZOLIN/NS 1gm 1 GM/50 ML BAG ONE (07:10)
[2021-04-01] MEDS ORDERED: propofoL 200 MG/20 ML VIAL IV ONE (07:31)
[2021-04-01] MEDS ORDERED: ONDANSETRON 4 MG/2 ML VIAL ONE (07:32)
[2021-04-01] MEDS ORDERED: KETOROLAC 30 MG/ML INJ ONE (07:32)
[2021-04-01] MEDS ORDERED: ROCURONIUM 50 MG/5 ML VIAL IV ONE (07:32)
[2021-04-01] MEDS ORDERED: dexAMETHasone 4 MG/ML VIAL ONE (07:32)
[2021-04-01] MEDS ORDERED: FENTANYL CITR 100 MCG/2 ML ONE (07:32)
[2021-04-01] MEDS ORDERED: LIDOCAINE 1% MPF 30 ML VIAL ONE (07:32)
[2021-04-01] MEDS ORDERED: CELECOXIB 100 MG CAPSULE ONE (08:05)
[2021-04-01] MEDS ORDERED: ACETAMINOPHEN 500 MG TAB ONE (08:05)
[2021-04-01] MEDS ORDERED: GLYCOPYRROLATE 0.2 MG/ML SYR ONE (09:03)
--- NOTE | 2021-04-01 10:09 | P.BOP ---
Preoperative diagnosis: tender umbilical hernia Postoperative diagnosis: same Primary procedure: Open repair of tender umbilical hernia Senior Compensation Consultant: Francine Corbett (Harshil) Estimated blood loss: <10cc Specimen: sac Findings: umbilical hernia Anesthesia: General Complications: None Transferred to: Recovery Room Condition: Good
--- NOTE | 2021-04-01 12:33 | DS ---
Diagnosis: Tender umbilical hernia. Procedure: Open repair of tender umbilical hernia. Disposition: Home. Activity: As tolerated. No heavy lifting. Plan: Follow up in my office in 1 week. Call for appointment at [phone]. Keep area dry for 48 michael rs, then may shower. Keep Steri-Strip intact. Medications: Include Tylenol No.3 q.4 hours p.r.n. pain. GABRIELE/SAMI Voice ID: [id number] Report ID: [id number]
--- NOTE | 2021-04-01 12:33 | OP ---
Date of Procedure: 04/01/2021 Surgeon: Luis Stephens MD Rod Straightener: Francine Joaquin. Preoperative Diagnosis: Tender umbilical hernia. Postoperative Diagnosis: Tender umbilical hernia. Procedure: Open repair of tender umbilical hernia. Estimated Blood Loss: Less than 10 cc. Findings: Umbilical hernia. Anesthesia: General plus local. Indication: This is the case of a lady, who comes to us with above diagnosis. Fully explained the b enefits, alternatives, and risks including, but not limited to infection, bleeding, damage to adjacen t structures, anesthesia complication, recurrence, CO, and even . She also understands this may not relieve any symptoms. She may need more than one surgical intervention. She understood, signed a consent. Procedure In Detail: The patient was brought to the operating room, placed in supine position. Anes thesia was done without complication. Time-out was called. Abdomen was prepped and draped in usual sterile fashion. A curvilinear incision was made over the periumbilical region. Incision was qian d down to bleeding area. We identified the hernia sac, removed the hernia sac, and cleaned the fasci al edges. We noticed for this to be approximated without the need of mesh and to approximate without tension. So, we approximated the area with #1 sutures. The fascia was approximated nicely. Subcut aneous tissue was closed with 3-0 chromic and the skin in a subcuticular fashion with 3-0 chromic and Steri-Strips on top. Sponge count and instrument counts correct. The patient tolerated the procedure well. The patient was sent to recovery in stable condi tion. GABRIELE/SAMI Voice ID: [id number] Report ID: [id number]
--- NOTE | 2021-04-01 12:48 | EKG ---
Test Date: 2021-03-31 Test Time: 13:59:32 Veneer Production Machine Operator: NASREEN MEASUREMENT RESULTS: Intervals: Rate: 69 TN: 144 QRSD: 72 QT: 376 QTc: 402 [place]: P: TN: 144 QRS: 5 T: 61 INTERPRETIVE STATEMENTS: Normal sinus rhythm Low voltage QRS Borderline ECG Compared to ECG 09/14/2020 00:05:08 Low QRS voltage now present Prolonged QT interval no longer present Electronically Signed On 04-01-21 12:46:30 APPRENTICESHIP TRAINING REPRESENTATIVE by German Parry
[2021-04-01 13:31] VITALS: BP 177/78; TEMP 97.1; O2SAT 99
== END 2021-04-01 10:55 | disposition home or self-care (01) ==
LOC: OR 07:04
PROVIDERS: ATTEND Surgery
PROC: 0WQF0ZZ Repair Abdominal Wall, Open Approach (ICD-10-PCS; principal; 2021-04-01 08:15)
DX: K42.9 Umbilical hernia without obstruction or gangrene (principal); I10 Essential (primary) hypertension; K21.9 Gastro-esophageal reflux disease without esophagitis
CPT/HCPCS: 93005; 85025; 80048; 36415; 88302; 71046; 49585; J2704; J1100; J3010; J0690; J7120; J2405

== ENCOUNTER 2022-03-09 01:19 | Emergency (ER) | payer OTHER ==
--- OUTSIDE RECORDS SUMMARY | 2022-03-09 01:27 | XMS REPORT | Continuity of Care Document ---
:1950 Author Organization Formerly [facility] t Address [address] [place] [address] Care Team Providers Name Role Phone Johnathon WAGNER [facility] Primary Care Physician [phone] Alex Diego Attending Clinician Unavailable VERÓNICA ARCE Attending Clinician Unavailable Verónica Mcintyre Attending Clinician Magy Dye MD Attending Clinician [facility] Attending Clinician Unavailable Morgan HATFIELD, Kasia [place]amo Attending Clinician Zehra Bower APRN Attending Clinician Santhosh Knowles Attending Clinician Unavailable Jovita George MD Attending Clinician Doctor Unassigned, [place] Attending Clinician Unavailable Lindsey George RN Attending Clinician Unavailable Only, Ang Db Test Attending Clinician Unavailable Sade Morfin Attending Clinician SADE RACHEL Attending Clinician Unavailable April Hernandez Attending Clinician APRIL WHEATLEY Attending Clinician Unavailable Radiology Attending Clinician Unavailable RADIOLOGY Attending Clinician Unavailable Paulo BARIRENTOS, Loreto Attending Clinician Unavailable David Sung Attending Clinician Pema HATFIELD, Pino Attending Clinician Stacie-Mbayo_A_AH Attending Clinician Unavailable Cal Machado MD Attending Clinician MAGY DYE Admitting Clinician Unavailable Pema HATFIELD, Pino Admitting Clinician Stacie-Mbayo_A_AH Admitting Clinician Unavailable Payers Payer Name Policy Type Policy Number Effective Date Expiration Date S [facility] [place] [id number] 2020 PLUS 00:00:00 CLASSIC/[place] [id number] [facility] [place] [id number] [facility] [place] [id number] [facility] - [facility] [id number] 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 00:00: Ho spita hyroidism hyroidism 00 l Tachycardi Tachycardi Disease Active 2020-02 U nivers a a 0-12 ity of 00:00: [address] Branch [id number] Hypercalce Problem Com mon kenia Spirit [facility] [id number] S/P Problem Common partial Spirit thyroidect - [facility] Decreased Decreased Problem Com mon hearing hearing [facility] [id number] 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 - [facility] dism [facility] [id number] Diverticul Problem C ommon [id number] osis large Spirit intestine - [facility] w/o perforatio [facility] n or Medical abscess Center w/bleeding [id number] Benign Problem Common essential Spirit tremor - [facility] [id number] Essential Problem Comm on (primary) Spirit hypertensi - [facility] on [facility] [id number] [place] of [place] [id number] parathyroi Spirit dectomy - [facility] [id number] Thyroid Problem Commo n nodule Spirit - [facility] [id number] 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[facility] carpometac [facility] joint, right hand Allergies, Adverse Reactions, Alerts Allergy Allergy Status Severity Reaction(s) Onset Inactive Treating Comm ents Source Name Type Date Date Clinician Hydralaz Propensi Active Palpitations 2020-02 Methodi ine ty to 0-12 st adverse 00:00: Hospita reaction 00 l s to drug Nitro Propensi Active Unknown - 2020-02 Bradycard Un shaan ty to See comments 0-12 ia; ity of adverse 00:00: hypotensi [place] reaction 00 on Medical s Branch Hydralaz Propensi Active Hypertension 2020-02 Univers ine ty to 0-12 ity of adverse 00:00: [place] reaction 00 Medical s Branch NITRO DRUG Active High Unknown-Cmnt 2020-02 Univ ers 0-12 ity of 00:00: [place] 00 Medical Branch HYDRALAZ DRUG Active High Palpitations 2020-02 Un shaan INE INGREDI 0-12 ity of 00:00: [place] 00 Medical Branch Nitrogly Propensi Active Other (See Me thodi cerin ty to Comments) 09-17 adverse 00:00: Hospita reaction 00 l s to drug NO KNOWN Drug Active Univers ALLERGIE Class ity of S [facility] nitrogly nitrogly Active Unknown Commo n cerin cerin [facility] hydralaz hydralaz Active Tachycardia C ommon ine ine [facility] Family History Family Member Diagnosis Comments Start Date Stop Date Source Natural brother Kidney cancer Method t [facility] Natural father Breast cancer Methodi [facility] Natural father Colon cancer [facility] Natural mother Skin cancer [facility] Social History Social Habit Start Date Stop Date Quantity Comments Source History of Common Spirit - Tobacco Use [facility] Exposure to 2021-08-24 2021-09-03 Not sure University of SARS-CoV-2 00:00:00 10:31:00 [facility] (event) Branch Alcohol intake 2021-07-15 2021-07-15 [facility] 00:00:00 00:00:00 non-drinker (finding) Tobacco use and 2021-06-02 2021-06-[address] [facility] exposure 00:00:00 00:00:00 non-user Sex [birth year] [facility] 00:00:00 00:00:00 Smoking Status Start Date Stop Date Source Never Smoker Common Spirit - [facility] Medications Ordered Filled Start Stop Current Ordering Indication Dosage Frequency Signature Comments Components Source Medication Medication Date Date Medication? Clinician (SIG) Name Name aspirin 81 Yes 81mg Take 81 mg U nivers mg chewable 7-14 by mouth. ity of tablet 10:41: [address] loratadine Yes 10mg Take 10 mg U nivers 10 mg 7-14 by mouth. ity of dissolvable 10:41: [address] aspirin 81 Yes 81mg Take 81 mg U nivers mg chewable 7-14 by mouth. ity of tablet 10:41: [address] loratadine Yes 10mg Take 10 mg U nivers 10 mg 7-14 by mouth. ity of dissolvable 10:41: [address] levothyroxi Yes Univer s ne 50 mcg 7-01 ity of tablet 00:00: [place] [facility] levothyroxi Yes Univer s ne 50 mcg 7-01 ity of tablet 00:00: [address] Levothyroxi Levothyroxi No QD Levothyrox ne Sodium ne Sodium 7-01 ine Sodium 50 MCG 50 MCG 00:00: 50 MCG 00 Levothyroxi Levothyroxi No QD Levothyrox ne Sodium ne Sodium 7-01 ine Sodium 50 MCG 50 MCG 00:00: 50 MCG 00 pantoprazol Yes Univer s e 40 mg EC 6-03 ity of tablet 00:00: [place] 00 Medical Branch pantoprazol Yes Univer s e 40 mg EC 6-03 ity of tablet 00:00: [facility] amLODIPine 2021-0 Yes Univers 5 mg tablet 5-26 ity of 00:00: Medical Branch losartan 0 Yes Univers 100 mg 5-26 ity of tablet 00:00: [facility] amLODIPine 2021-0 Yes Univers 5 mg tablet 5-26 ity of 00:00: [facility] losartan 2021-0 Yes Univers 100 mg 5-26 ity of tablet 00:00: [facility] loratadine 0 Yes 10mg QD Take 10 mg M ethodi (CLARITIN) 5-[address] 10 mg 09:24: every Hospita tablet 20 morning. l TURMERIC 0 Yes Take by Method i ORAL 5-[address] 09:24: Hospita 20 l glucosamine 0 Yes Take by Met hodi /chondr guajardo 5-[address] A sod 09:24: Hospita (OSTEO 20 l BI-FLEX ORAL) loratadine Yes 10mg QD Take 10 mg M ethodi (CLARITIN) 5-[address] 10 mg 09:24: every Hospita tablet 20 morning. l TURMERIC 0 Yes Take by Method i ORAL 5-[address] 09:24: Hospita 20 l glucosamine 0 Yes Take by Met hodi /chondr guajardo 5-[address] A sod 09:24: Hospita (OSTEO 20 l BI-FLEX ORAL) calcium 2021- No 1{tbl} Q.5D Take 1 Metho di citrate 07-[address] (CALCITRATE 00:00: 04:59 mouth 2 Ho spita ) 200 mg 00 :00 (two) l (950 mg) times a tablet day for 21 days. calcium 2021- No 1{tbl} Q.5D Take 1 Metho di citrate 07-[address] (CALCITRATE 00:00: 04:59 mouth 2 Ho spita ) 200 mg 00 :00 (two) l (950 mg) times a tablet day for 21 days. acetaminoph 2021- No 1000mg Q8H Take 2 M ethodi en 07-01 05-[address] (TYLENOL) 00:00: 04:59 (1,000 mg Ho spita 500 MG 00 :00 total) by l tablet mouth every 8 (eight) hours for 7 days. traMADoL 2021- No [id number] 50mg Q6H Take 1 Metho di (ULTRAM) 50 5- 05-19 tablet (50 s t mg tablet 00:00: 04:59 mg total) Ho spita 00 :00 by mouth l every 6 (six) hours as needed for severe pain for up to 7 days .acute pain. acetaminoph 2021- No 1000mg Q8H Take 2 M ethodi en 5- 05-[address] (TYLENOL) 00:00: 04:59 (1,000 mg Ho spita 500 MG 00 :00 total) by l tablet mouth every 8 (eight) hours for 7 days. traMADoL 2021- [place] [id number] 50mg Q6H Take 1 Metho di (ULTRAM) 50 -12 26-19 tablet (50 s t mg tablet 00:00: 04:59 mg total) Ho spita 00 :00 by mouth l every 6 (six) hours as needed for severe pain for up to 7 days .acute pain. calcium 2021-2021- No 1000mg Q.5D Chew 2 Metho di carbonate 5-12 26-[address] (TUMS) 200 00:00: 00:00 (1,000 mg H ospita mg calcium 00 :00 total) 2 l (500 mg) (two) chewable times a tablet day for 30 days. calcium 2021- No 1000mg Q.5D Chew 2 Metho di carbonate 5- 05-[address] (TUMS) 200 00:00: 00:00 (1,000 mg H ospita mg calcium 00 :00 total) 2 l (500 mg) (two) chewable times a tablet day for 30 days. labetaloL Yes TAKE ONE Univ ers 200 mg 4-22 TABLET BY ity of tablet 00:00: MOUTH [place] 00 TWICE A Medical DAY Branch NEEDED FOR SYSTOLIC BLOOD PRESSURE OVER 170 labetaloL Yes TAKE ONE Univ ers 200 mg 4-22 TABLET BY ity of tablet 00:00: MOUTH [place] 00 TWICE A Medical DAY Branch NEEDED FOR SYSTOLIC BLOOD PRESSURE OVER 170 pantoprazol Yes 40mg Q2D Take 40 mg Methodi e 3-[address] (PROTONIX) 00:00: every Hospit a 40 MG EC 00 other day. l tablet pantoprazol Yes 40mg Q2D Take 40 mg Methodi e 3-[address] (PROTONIX) 00:00: every Hospit a 40 MG EC 00 other day. l tablet lidocaine 2020-02- PRN, Univers 1% (PF) 12-09 Starting ity of (XYLOCAINE) 16:04: 16:04 on Tue as injection 45 :45 12/09/20 Medica l at 1104, Branch Until Tue12/09/20 at 1104, Routine No known 2020-02 No Univers medications 0-12 ity of 18:45: [address] No known 2020-02 No Univers medications 0-12 ity of 18:45: [address] No known 2020-02 No Univers medications 0-12 ity of 18:45: [address] No known 2020-02 No Univers medications 0-12 ity of 18:45: [address] No known 2020-02 No Univers medications 0-12 ity of 18:45: [address] amLODIPine Yes 5mg QD Take 5 mg Me thodi (NORVASC) 5 02-[address] mg tablet 00:00: daily with Ho spita 00 lunch. l aspirin 81 Yes 1{capsu QD Take 1 Me thodi mg capsule 02-21} capsule by st 00:00: mouth Hospita 00 every l morning. mv-mn/folic Yes Method i ac/calcium/ 02-21 st vit K1 00:00: Hospita (WOMEN'S 50 00 l PLUS MULTIVITAMI N ORAL) losartan Yes 100mg QD Take 100 Meth todd (COZAAR) [address] 100 MG 00:00: mouth Hospita tablet 00 every l morning. omega Yes Methodi 3-dha-epa-f 02-21 st faviola oil 00:00: Hospita 1,200 00 l (144-216) mg capsule amLODIPine Yes 5mg QD Take 5 mg Me thodi (NORVASC) 5 02-[address] mg tablet 00:00: daily with Ho spita 00 lunch. l aspirin 81 Yes 1{capsu QD Take 1 Me thodi mg capsule 02-21 le} capsule by st 00:00: mouth Hospita 00 every l morning. mv-mn/folic Yes Method i ac/calcium/ 02-21 st vit K1 00:00: Hospita (WOMEN'S 50 00 l PLUS MULTIVITAMI N ORAL) losartan Yes 100mg QD Take 100 Meth todd (COZAAR) 02-[address] 100 MG 00:00: mouth Hospita tablet 00 every l morning. omega Yes Methodi 3-dha-epa-f 02-[address] st faviola oil 00:00: Hospita 1,200 00 l (144-216) mg capsule Multi Multi No Multi Vitamin Vitamin Vitamin amLODIPine amLODIPine No 1{table QD amLODIPine Besylate 5 Besylate 5 t} Besylate 5 MG MG MG Losartan Losartan No Losartan Potassium Potassium Potassium 100 MG 100 MG 100 MG Pantoprazol Pantoprazol No 1{table QD Pantoprazo e Sodium 40 e Sodium 40 t} le Sodium MG MG 40 MG Tumersaid Tumersaid No Tumersaid Aspirin 81 Aspirin 81 No 1{table QD Aspirin 81 81 MG 81 MG t} 81 MG ZyrTEC ZyrTEC No ZyrTEC Loratadine Loratadine No 1{table QD Loratadine 10 MG 10 MG t} 10 MG Ipratropium Ipratropium No 2{puffs QID Ipratropiu Galva HFA Galva HFA } m Galva 17 MCG/ACT 17 MCG/ACT HFA 17 MCG/ACT Levothyroxi Levothyroxi No QD Levothyrox ne Sodium ne Sodium ine Sodium 75 MCG 75 MCG 75 MCG CoQ-10 CoQ-10 No CoQ-10 Fish Oil Fish Oil No 1{capsu QD Fish Oil 1200 MG 1200 MG le} 1200 MG Multi Multi No Multi Vitamin Vitamin Vitamin labetalol labetalol No labetalol 200mg 200mg 200mg Ipratropium Ipratropium No 2{puffs QID Ipratropiu Galva HFA Galva HFA } m Galva 17 MCG/ACT 17 MCG/ACT HFA 17 MCG/ACT Loratadine Loratadine No 1{table QD Loratadine 10 MG 10 MG t} 10 MG labetalol labetalol No labetalol 200mg 200mg 200mg Tumersaid Tumersaid No Tumersaid ZyrTEC ZyrTEC No ZyrTEC Losartan Losartan No 1{table QD Losartan Potassium Potassium t} Potassium 100 MG 100 MG 100 MG Aspirin 81 Aspirin 81 No 1{table QD Aspirin 81 81 MG 81 MG t} 81 MG amLODIPine amLODIPine No 1{table QD amLODIPine Besylate 5 Besylate 5 t} Besylate 5 MG MG MG Pantoprazol Pantoprazol No 1{table QD Pantoprazo e Sodium 40 e Sodium 40 t} le Sodium MG MG 40 MG CoQ-10 CoQ-10 No CoQ-10 Fish Oil Fish Oil No 1{capsu QD Fish Oil 1200 MG 1200 MG le} 1200 MG Osteo Osteo No Osteo Bi-Flex One Bi-Flex One Bi-Flex Per Day Per Day One Per Day Calcium + D Calcium + D No Calcium + D Losartan Losartan No Losartan Potassium Potassium Potassium 100 MG 100 MG 100 MG Levothyroxi Levothyroxi No QD Levothyrox ne Sodium ne Sodium ine Sodium 75 MCG 75 MCG 75 MCG Multi Multi No Multi Vitamin Vitamin Vitamin Garlic 400 Garlic 400 No Garlic 400 MG MG MG Osteo Osteo No Osteo Bi-Flex One Bi-Flex One Bi-Flex Per Day Per Day One Per Day Losartan Losartan No 1{table QD Losartan Potassium Potassium t} Potassium 100 MG 100 MG 100 MG Pantoprazol Pantoprazol No 1{table QD Pantoprazo e Sodium 40 e Sodium 40 t} le Sodium MG MG 40 MG amLODIPine amLODIPine No 1{table QD amLODIPine Besylate 5 Besylate 5 t} Besylate 5 MG MG MG Fish Oil Fish Oil No 1{capsu QD Fish Oil 1200 MG 1200 MG le} 1200 MG Garlic 400 Garlic 400 No Garlic 400 MG MG MG Tumersaid Tumersaid No Tumersaid Multi Multi No Multi Vitamin Vitamin Vitamin Ipratropium Ipratropium No 2{puffs QID Ipratropiu Galva HFA Galva HFA } m Galva 17 MCG/ACT 17 MCG/ACT HFA 17 MCG/ACT Aspirin 81 Aspirin 81 No 1{table QD Aspirin 81 81 MG 81 MG t} 81 MG CoQ-10 CoQ-10 No CoQ-10 Pantoprazol Pantoprazol No 1{table QD Pantoprazo e Sodium 40 e Sodium 40 t} le Sodium MG MG 40 MG Garlic 400 Garlic 400 No Garlic 400 MG MG MG Multi Multi No Multi Vitamin Vitamin Vitamin Fish Oil Fish Oil No 1{capsu QD Fish Oil 1200 MG 1200 MG le} 1200 MG Losartan Losartan No 1{table QD Losartan Potassium Potassium t} Potassium 100 MG 100 MG 100 MG Loratadine Loratadine No 1{table QD Loratadine 10 MG 10 MG t} 10 MG CoQ-10 CoQ-10 No CoQ-10 Ipratropium Ipratropium No 2{puffs QID Ipratropiu Galva HFA Galva HFA } m Galva 17 MCG/ACT 17 MCG/ACT HFA 17 MCG/ACT Aspirin 81 Aspirin 81 No 1{table QD Aspirin 81 81 MG 81 MG t} 81 MG Tumersaid Tumersaid No Tumersaid Osteo Osteo No Osteo Bi-Flex One Bi-Flex One Bi-Flex Per Day Per Day One Per Day amLODIPine amLODIPine No 1{table QD amLODIPine Besylate 5 Besylate 5 t} Besylate 5 MG MG MG Pantoprazol Pantoprazol No 1{table QD Pantoprazo e Sodium 40 e Sodium 40 t} le Sodium MG MG 40 MG Garlic 400 Garlic 400 No Garlic 400 MG MG MG Multi Multi No Multi Vitamin Vitamin Vitamin Fish Oil Fish Oil No 1{capsu QD Fish Oil 1200 MG 1200 MG le} 1200 MG Loratadine Loratadine No 1{table QD Loratadine 10 MG 10 MG t} 10 MG Osteo Osteo No Osteo Bi-Flex One Bi-Flex One Bi-Flex Per Day Per Day One Per Day amLODIPine amLODIPine No 1{table QD amLODIPine Besylate 5 Besylate 5 t} Besylate 5 MG MG MG Ipratropium Ipratropium No 2{puffs QID Ipratropiu Galva HFA Galva HFA } m Galva 17 MCG/ACT 17 MCG/ACT HFA 17 MCG/ACT Aspirin 81 Aspirin 81 No 1{table QD Aspirin 81 81 MG 81 MG t} 81 MG Tumersaid Tumersaid No Tumersaid Losartan Losartan No 1{table QD Losartan Potassium Potassium t} Potassium 100 MG 100 MG 100 MG CoQ-10 CoQ-10 No CoQ-10 CoQ-10 CoQ-10 No CoQ-10 Ipratropium Ipratropium No 2{puffs QID Ipratropiu Galva HFA Galva HFA } m Galva 17 MCG/ACT 17 MCG/ACT HFA 17 MCG/ACT Garlic 400 Garlic 400 No Garlic 400 MG MG MG Osteo Osteo No Osteo Bi-Flex One Bi-Flex One Bi-Flex Per Day Per Day One Per Day Aspirin 81 Aspirin 81 No 1{table QD Aspirin 81 81 MG 81 MG t} 81 MG Multi Multi No Multi Vitamin Vitamin Vitamin Loratadine Loratadine No 1{table QD Loratadine 10 MG 10 MG t} 10 MG Tumersaid Tumersaid No Tumersaid Fish Oil Fish Oil No 1{capsu QD Fish Oil 1200 MG 1200 MG le} 1200 MG Pantoprazol Pantoprazol No 1{table QD Pantoprazo e Sodium 40 e Sodium 40 t} le Sodium MG MG 40 MG amLODIPine amLODIPine No 1{table QD amLODIPine Besylate 5 Besylate 5 t} Besylate 5 MG MG MG Losartan Losartan No 1{table QD Losartan Potassium Potassium t} Potassium 100 MG 100 MG 100 MG CoQ-10 CoQ-10 No CoQ-10 Ipratropium Ipratropium No 2{puffs QID Ipratropiu Galva HFA Galva HFA } m Galva 17 MCG/ACT 17 MCG/ACT HFA 17 MCG/ACT Garlic 400 Garlic 400 No Garlic 400 MG MG MG Osteo Osteo No Osteo Bi-Flex One Bi-Flex One Bi-Flex Per Day Per Day One Per Day Aspirin 81 Aspirin 81 No 1{table QD Aspirin 81 81 MG 81 MG t} 81 MG Multi Multi No Multi Vitamin Vitamin Vitamin Loratadine Loratadine No 1{table QD Loratadine 10 MG 10 MG t} 10 MG Tumersaid Tumersaid No Tumersaid Fish Oil Fish Oil No 1{capsu QD Fish Oil 1200 MG 1200 MG le} 1200 MG Pantoprazol Pantoprazol No 1{table QD Pantoprazo e Sodium 40 e Sodium 40 t} le Sodium MG MG 40 MG amLODIPine amLODIPine No 1{table QD amLODIPine Besylate 5 Besylate 5 t} Besylate 5 MG MG MG Losartan Losartan No 1{table QD Losartan Potassium Potassium t} Potassium 100 MG 100 MG 100 MG Aspirin 81 Aspirin 81 No 1{table QD Aspirin 81 81 MG 81 MG t} 81 MG CoQ-10 CoQ-10 No CoQ-10 Tumersaid Tumersaid No Tumersaid Pantoprazol Pantoprazol No 1{table QD Pantoprazo e Sodium 40 e Sodium 40 t} le Sodium MG MG 40 MG Losartan Losartan No 1{table QD Losartan Potassium Potassium t} Potassium 100 MG 100 MG 100 MG Garlic 400 Garlic 400 No Garlic 400 MG MG MG Ipratropium Ipratropium No 2{puffs QID Ipratropiu Galva HFA Galva HFA } m Galva 17 MCG/ACT 17 MCG/ACT HFA 17 MCG/ACT Multi Multi No Multi Vitamin Vitamin Vitamin Loratadine Loratadine No 1{table QD Loratadine 10 MG 10 MG t} 10 MG Osteo Osteo No Osteo Bi-Flex One Bi-Flex One Bi-Flex Per Day Per Day One Per Day Fish Oil Fish Oil No 1{capsu QD Fish Oil 1200 MG 1200 MG le} 1200 MG amLODIPine amLODIPine No 1{table QD amLODIPine Besylate 5 Besylate 5 t} Besylate 5 MG MG MG Aspirin 81 Aspirin 81 No 1{table QD Aspirin 81 81 MG 81 MG t} 81 MG CoQ-10 CoQ-10 No CoQ-10 Tumersaid Tumersaid No Tumersaid Pantoprazol Pantoprazol No 1{table QD Pantoprazo e Sodium 40 e Sodium 40 t} le Sodium MG MG 40 MG Losartan Losartan No 1{table QD Losartan Potassium Potassium t} Potassium 100 MG 100 MG 100 MG Garlic 400 Garlic 400 No Garlic 400 MG MG MG Ipratropium Ipratropium No 2{puffs QID Ipratropiu Galva HFA Galva HFA } m Galva 17 MCG/ACT 17 MCG/ACT HFA 17 MCG/ACT Multi Multi No Multi Vitamin Vitamin Vitamin Loratadine Loratadine No 1{table QD Loratadine 10 MG 10 MG t} 10 MG Osteo Osteo No Osteo Bi-Flex One Bi-Flex One Bi-Flex Per Day Per Day One Per Day Fish Oil Fish Oil No 1{capsu QD Fish Oil 1200 MG 1200 MG le} 1200 MG amLODIPine amLODIPine No 1{table QD amLODIPine Besylate 5 Besylate 5 t} Besylate 5 MG MG MG Aspirin 81 Aspirin 81 No 1{table QD Aspirin 81 81 MG 81 MG t} 81 MG CoQ-10 CoQ-10 No CoQ-10 Tumersaid Tumersaid No Tumersaid Pantoprazol Pantoprazol No 1{table QD Pantoprazo e Sodium 40 e Sodium 40 t} le Sodium MG MG 40 MG Losartan Losartan No 1{table QD Losartan Potassium Potassium t} Potassium 100 MG 100 MG 100 MG Garlic 400 Garlic 400 No Garlic 400 MG MG MG Ipratropium Ipratropium No 2{puffs QID Ipratropiu Galva HFA Galva HFA } m Galva 17 MCG/ACT 17 MCG/ACT HFA 17 MCG/ACT Multi Multi No Multi Vitamin Vitamin Vitamin Loratadine Loratadine No 1{table QD Loratadine 10 MG 10 MG t} 10 MG Osteo Osteo No Osteo Bi-Flex One Bi-Flex One Bi-Flex Per Day Per Day One Per Day Fish Oil Fish Oil No 1{capsu QD Fish Oil 1200 MG 1200 MG le} 1200 MG amLODIPine amLODIPine No 1{table QD amLODIPine Besylate 5 Besylate 5 t} Besylate 5 MG MG MG Aspirin 81 Aspirin 81 No 1{table QD Aspirin 81 81 MG 81 MG t} 81 MG CoQ-10 CoQ-10 No CoQ-10 Tumersaid Tumersaid No Tumersaid Pantoprazol Pantoprazol No 1{table QD Pantoprazo e Sodium 40 e Sodium 40 t} le Sodium MG MG 40 MG Losartan Losartan No 1{table QD Losartan Potassium Potassium t} Potassium 100 MG 100 MG 100 MG Garlic 400 Garlic 400 No Garlic 400 MG MG MG Ipratropium Ipratropium No 2{puffs QID Ipratropiu Galva HFA Galva HFA } m Galva 17 MCG/ACT 17 MCG/ACT HFA 17 MCG/ACT Multi Multi No Multi Vitamin Vitamin Vitamin Loratadine Loratadine No 1{table QD Loratadine 10 MG 10 MG t} 10 MG Osteo Osteo No Osteo Bi-Flex One Bi-Flex One Bi-Flex Per Day Per Day One Per Day Fish Oil Fish Oil No 1{capsu QD Fish Oil 1200 MG 1200 MG le} 1200 MG amLODIPine amLODIPine No 1{table QD amLODIPine Besylate 5 Besylate 5 t} Besylate 5 MG MG MG Aspirin 81 Aspirin 81 No 1{table QD Aspirin 81 81 MG 81 MG t} 81 MG CoQ-10 CoQ-10 No CoQ-10 Tumersaid Tumersaid No Tumersaid Pantoprazol Pantoprazol No 1{table QD Pantoprazo e Sodium 40 e Sodium 40 t} le Sodium MG MG 40 MG Losartan Losartan No 1{table QD Losartan Potassium Potassium t} Potassium 100 MG 100 MG 100 MG Garlic 400 Garlic 400 No Garlic 400 MG MG MG Ipratropium Ipratropium No 2{puffs QID Ipratropiu Galva HFA Galva HFA } m Galva 17 MCG/ACT 17 MCG/ACT HFA 17 MCG/ACT Multi Multi No Multi Vitamin Vitamin Vitamin Loratadine Loratadine No 1{table QD Loratadine 10 MG 10 MG t} 10 MG Osteo Osteo No Osteo Bi-Flex One Bi-Flex One Bi-Flex Per Day Per Day One Per Day Fish Oil Fish Oil No 1{capsu QD Fish Oil 1200 MG 1200 MG le} 1200 MG amLODIPine amLODIPine No 1{table QD amLODIPine Besylate 5 Besylate 5 t} Besylate 5 MG MG MG Aspirin 81 Aspirin 81 No 1{table QD Aspirin 81 81 MG 81 MG t} 81 MG CoQ-10 CoQ-10 No CoQ-10 Tumersaid Tumersaid No Tumersaid Pantoprazol Pantoprazol No 1{table QD Pantoprazo e Sodium 40 e Sodium 40 t} le Sodium MG MG 40 MG Losartan Losartan No 1{table QD Losartan Potassium Potassium t} Potassium 100 MG 100 MG 100 MG Garlic 400 Garlic 400 No Garlic 400 MG MG MG Ipratropium Ipratropium No 2{puffs QID Ipratropiu Galva HFA Galva HFA } m Galva 17 MCG/ACT 17 MCG/ACT HFA 17 MCG/ACT Multi Multi No Multi Vitamin Vitamin Vitamin Loratadine Loratadine No 1{table QD Loratadine 10 MG 10 MG t} 10 MG Osteo Osteo No Osteo Bi-Flex One Bi-Flex One Bi-Flex Per Day Per Day One Per Day Fish Oil Fish Oil No 1{capsu QD Fish Oil 1200 MG 1200 MG le} 1200 MG amLODIPine amLODIPine No 1{table QD amLODIPine Besylate 5 Besylate 5 t} Besylate 5 MG MG MG Aspirin 81 Aspirin 81 No 1{table QD Aspirin 81 81 MG 81 MG t} 81 MG CoQ-10 CoQ-10 No CoQ-10 Tumersaid Tumersaid No Tumersaid Pantoprazol Pantoprazol No 1{table QD Pantoprazo e Sodium 40 e Sodium 40 t} le Sodium MG MG 40 MG Losartan Losartan No 1{table QD Losartan Potassium Potassium t} Potassium 100 MG 100 MG 100 MG Garlic 400 Garlic 400 No Garlic 400 MG MG MG Ipratropium Ipratropium No 2{puffs QID Ipratropiu Galva HFA Galva HFA } m Galva 17 MCG/ACT 17 MCG/ACT HFA 17 MCG/ACT Multi Multi No Multi Vitamin Vitamin Vitamin Loratadine Loratadine No 1{table QD Loratadine 10 MG 10 MG t} 10 MG Osteo Osteo No Osteo Bi-Flex One Bi-Flex One Bi-Flex Per Day Per Day One Per Day Fish Oil Fish Oil No 1{capsu QD Fish Oil 1200 MG 1200 MG le} 1200 MG amLODIPine amLODIPine No 1{table QD amLODIPine Besylate 5 Besylate 5 t} Besylate 5 MG MG MG Aspirin 81 Aspirin 81 No 1{table QD Aspirin 81 81 MG 81 MG t} 81 MG CoQ-10 CoQ-10 No CoQ-10 Tumersaid Tumersaid No Tumersaid Pantoprazol Pantoprazol No 1{table QD Pantoprazo e Sodium 40 e Sodium 40 t} le Sodium MG MG 40 MG Losartan Losartan No 1{table QD Losartan Potassium Potassium t} Potassium 100 MG 100 MG 100 MG Garlic 400 Garlic 400 No Garlic 400 MG MG MG Ipratropium Ipratropium No 2{puffs QID Ipratropiu Galva HFA Galva HFA } m Galva 17 MCG/ACT 17 MCG/ACT HFA 17 MCG/ACT Multi Multi No Multi Vitamin Vitamin Vitamin Loratadine Loratadine No 1{table QD Loratadine 10 MG 10 MG t} 10 MG Osteo Osteo No Osteo Bi-Flex One Bi-Flex One Bi-Flex Per Day Per Day One Per Day Fish Oil Fish Oil No 1{capsu QD Fish Oil 1200 MG 1200 MG le} 1200 MG amLODIPine amLODIPine No 1{table QD amLODIPine Besylate 5 Besylate 5 t} Besylate 5 MG MG MG Aspirin 81 Aspirin 81 No 1{table QD Aspirin 81 81 MG 81 MG t} 81 MG CoQ-10 CoQ-10 No CoQ-10 Tumersaid Tumersaid No Tumersaid Pantoprazol Pantoprazol No 1{table QD Pantoprazo e Sodium 40 e Sodium 40 t} le Sodium MG MG 40 MG Losartan Losartan No 1{table QD Losartan Potassium Potassium t} Potassium 100 MG 100 MG 100 MG Garlic 400 Garlic 400 No Garlic 400 MG MG MG Ipratropium Ipratropium No 2{puffs QID Ipratropiu Galva HFA Galva HFA } m Galva 17 MCG/ACT 17 MCG/ACT HFA 17 MCG/ACT Multi Multi No Multi Vitamin Vitamin Vitamin Loratadine Loratadine No 1{table QD Loratadine 10 MG 10 MG t} 10 MG Osteo Osteo No Osteo Bi-Flex One Bi-Flex One Bi-Flex Per Day Per Day One Per Day Fish Oil Fish Oil No 1{capsu QD Fish Oil 1200 MG 1200 MG le} 1200 MG amLODIPine amLODIPine No 1{table QD amLODIPine Besylate 5 Besylate 5 t} Besylate 5 MG MG MG Pantoprazol Pantoprazol No 1{table QD Pantoprazo e Sodium 40 e Sodium 40 t} le Sodium MG MG 40 MG Losartan Losartan No 1{table QD Losartan Potassium Potassium t} Potassium 100 MG 100 MG 100 MG Tumersaid Tumersaid No Tumersaid Loratadine Loratadine No 1{table QD Loratadine 10 MG 10 MG t} 10 MG Fish Oil Fish Oil No 1{capsu QD Fish Oil 1200 MG 1200 MG le} 1200 MG Ipratropium Ipratropium No 2{puffs QID Ipratropiu Galva HFA Galva HFA } m Galva 17 MCG/ACT 17 MCG/ACT HFA 17 MCG/ACT Garlic 400 Garlic 400 No Garlic 400 MG MG MG CoQ-10 CoQ-10 No CoQ-10 Osteo Osteo No Osteo Bi-Flex One Bi-Flex One Bi-Flex Per Day Per Day One Per Day Aspirin 81 Aspirin 81 No 1{table QD Aspirin 81 81 MG 81 MG t} 81 MG amLODIPine amLODIPine No 1{table QD amLODIPine Besylate 5 Besylate 5 t} Besylate 5 MG MG MG Multi Multi No Multi Vitamin Vitamin Vitamin Multi Multi No Multi Vitamin Vitamin Vitamin amLODIPine amLODIPine No 1{table QD amLODIPine Besylate 5 Besylate 5 t} Besylate 5 MG MG MG CoQ-10 CoQ-10 No CoQ-10 Ipratropium Ipratropium No 2{puffs QID Ipratropiu Galva HFA Galva HFA } m Galva 17 MCG/ACT 17 MCG/ACT HFA 17 MCG/ACT Tumersaid Tumersaid No Tumersaid Osteo Osteo No Osteo Bi-Flex One Bi-Flex One Bi-Flex Per Day Per Day One Per Day Losartan Losartan No 1{table QD Losartan Potassium Potassium t} Potassium 100 MG 100 MG 100 MG Fish Oil Fish Oil No 1{capsu QD Fish Oil 1200 MG 1200 MG le} 1200 MG Pantoprazol Pantoprazol No 1{table QD Pantoprazo e Sodium 40 e Sodium 40 t} le Sodium MG MG 40 MG Aspirin 81 Aspirin 81 No 1{table QD Aspirin 81 81 MG 81 MG t} 81 MG Garlic 400 Garlic 400 No Garlic 400 MG MG MG Loratadine Loratadine No 1{table QD Loratadine 10 MG 10 MG t} 10 MG Multi Multi No Multi Vitamin Vitamin Vitamin amLODIPine amLODIPine No 1{table QD amLODIPine Besylate 5 Besylate 5 t} Besylate 5 MG MG MG CoQ-10 CoQ-10 No CoQ-10 Ipratropium Ipratropium No 2{puffs QID Ipratropiu Galva HFA Galva HFA } m Galva 17 MCG/ACT 17 MCG/ACT HFA 17 MCG/ACT Tumersaid Tumersaid No Tumersaid Osteo Osteo No Osteo Bi-Flex One Bi-Flex One Bi-Flex Per Day Per Day One Per Day Losartan Losartan No 1{table QD Losartan Potassium Potassium t} Potassium 100 MG 100 MG 100 MG Fish Oil Fish Oil No 1{capsu QD Fish Oil 1200 MG 1200 MG le} 1200 MG Pantoprazol Pantoprazol No 1{table QD Pantoprazo e Sodium 40 e Sodium 40 t} le Sodium MG MG 40 MG Aspirin 81 Aspirin 81 No 1{table QD Aspirin 81 81 MG 81 MG t} 81 MG Garlic 400 Garlic 400 No Garlic 400 MG MG MG Loratadine Loratadine No 1{table QD Loratadine 10 MG 10 MG t} 10 MG Multi Multi No Multi Vitamin Vitamin Vitamin amLODIPine amLODIPine No 1{table QD amLODIPine Besylate 5 Besylate 5 t} Besylate 5 MG MG MG CoQ-10 CoQ-10 No CoQ-10 Ipratropium Ipratropium No 2{puffs QID Ipratropiu Galva HFA Galva HFA } m Galva 17 MCG/ACT 17 MCG/ACT HFA 17 MCG/ACT Tumersaid Tumersaid No Tumersaid Osteo Osteo No Osteo Bi-Flex One Bi-Flex One Bi-Flex Per Day Per Day One Per Day Losartan Losartan No 1{table QD Losartan Potassium Potassium t} Potassium 100 MG 100 MG 100 MG Fish Oil Fish Oil No 1{capsu QD Fish Oil 1200 MG 1200 MG le} 1200 MG Pantoprazol Pantoprazol No 1{table QD Pantoprazo e Sodium 40 e Sodium 40 t} le Sodium MG MG 40 MG Aspirin 81 Aspirin 81 No 1{table QD Aspirin 81 81 MG 81 MG t} 81 MG Garlic 400 Garlic 400 No Garlic 400 MG MG MG Loratadine Loratadine No 1{table QD Loratadine 10 MG 10 MG t} 10 MG Tumersaid Tumersaid No Tumersaid Aspirin 81 Aspirin 81 No 1{table QD Aspirin 81 81 MG 81 MG t} 81 MG Fish Oil Fish Oil No 1{capsu QD Fish Oil 1200 MG 1200 MG le} 1200 MG Multi Multi No Multi Vitamin Vitamin Vitamin Ipratropium Ipratropium No 2{puffs QID Ipratropiu Galva HFA Galva HFA } m Galva 17 MCG/ACT 17 MCG/ACT HFA 17 MCG/ACT Garlic 400 Garlic 400 No Garlic 400 MG MG MG Osteo Osteo No Osteo Bi-Flex One Bi-Flex One Bi-Flex Per Day Per Day One Per Day labetalol labetalol No labetalol 200mg 200mg 200mg Losartan Losartan No 1{table QD Losartan Potassium Potassium t} Potassium 100 MG 100 MG 100 MG Loratadine Loratadine No 1{table QD Loratadine 10 MG 10 MG t} 10 MG Calcium + D Calcium + D No Calcium + D CoQ-10 CoQ-10 No CoQ-10 Pantoprazol Pantoprazol No 1{table QD Pantoprazo e Sodium 40 e Sodium 40 t} le Sodium MG MG 40 MG amLODIPine amLODIPine No 1{table QD amLODIPine Besylate 5 Besylate 5 t} Besylate 5 MG MG MG Tumersaid Tumersaid No Tumersaid Aspirin 81 Aspirin 81 No 1{table QD Aspirin 81 81 MG 81 MG t} 81 MG Fish Oil Fish Oil No 1{capsu QD Fish Oil 1200 MG 1200 MG le} 1200 MG Multi Multi No Multi Vitamin Vitamin Vitamin Ipratropium Ipratropium No 2{puffs QID Ipratropiu Galva HFA Galva HFA } m Galva 17 MCG/ACT 17 MCG/ACT HFA 17 MCG/ACT Garlic 400 Garlic 400 No Garlic 400 MG MG MG Osteo Osteo No Osteo Bi-Flex One Bi-Flex One Bi-Flex Per Day Per Day One Per Day labetalol labetalol No labetalol 200mg 200mg 200mg Losartan Losartan No 1{table QD Losartan Potassium Potassium t} Potassium 100 MG 100 MG 100 MG Loratadine Loratadine No 1{table QD Loratadine 10 MG 10 MG t} 10 MG Calcium + D Calcium + D No Calcium + D CoQ-10 CoQ-10 No CoQ-10 Pantoprazol Pantoprazol No 1{table QD Pantoprazo e Sodium 40 e Sodium 40 t} le Sodium MG MG 40 MG amLODIPine amLODIPine No 1{table QD amLODIPine Besylate 5 Besylate 5 t} Besylate 5 MG MG MG Aspirin 81 Aspirin 81 No 1{table QD Aspirin 81 81 MG 81 MG t} 81 MG Multi Multi No Multi Vitamin Vitamin Vitamin Garlic 400 Garlic 400 No Garlic 400 MG MG MG Osteo Osteo No Osteo Bi-Flex One Bi-Flex One Bi-Flex Per Day Per Day One Per Day Loratadine Loratadine No 1{table QD Loratadine 10 MG 10 MG t} 10 MG Ipratropium Ipratropium No 2{puffs QID Ipratropiu Galva HFA Galva HFA } m Galva 17 MCG/ACT 17 MCG/ACT HFA 17 MCG/ACT labetalol labetalol No labetalol 200mg 200mg 200mg Fish Oil Fish Oil No 1{capsu QD Fish Oil 1200 MG 1200 MG le} 1200 MG CoQ-10 CoQ-10 No CoQ-10 Pantoprazol Pantoprazol No 1{table QD Pantoprazo e Sodium 40 e Sodium 40 t} le Sodium MG MG 40 MG Losartan Losartan No 1{table QD Losartan Potassium Potassium t} Potassium 100 MG 100 MG 100 MG Tumersaid Tumersaid No Tumersaid amLODIPine amLODIPine No 1{table QD amLODIPine Besylate 5 Besylate 5 t} Besylate 5 MG MG MG Calcium + D Calcium + D No Calcium + D Aspirin 81 Aspirin 81 No 1{table QD Aspirin 81 81 MG 81 MG t} 81 MG Multi Multi No Multi Vitamin Vitamin Vitamin Garlic 400 Garlic 400 No Garlic 400 MG MG MG Osteo Osteo No Osteo Bi-Flex One Bi-Flex One Bi-Flex Per Day Per Day One Per Day Loratadine Loratadine No 1{table QD Loratadine 10 MG 10 MG t} 10 MG Ipratropium Ipratropium No 2{puffs QID Ipratropiu Galva HFA Galva HFA } m Galva 17 MCG/ACT 17 MCG/ACT HFA 17 MCG/ACT labetalol labetalol No labetalol 200mg 200mg 200mg Fish Oil Fish Oil No 1{capsu QD Fish Oil 1200 MG 1200 MG le} 1200 MG CoQ-10 CoQ-10 No CoQ-10 Pantoprazol Pantoprazol No 1{table QD Pantoprazo e Sodium 40 e Sodium 40 t} le Sodium MG MG 40 MG Losartan Losartan No 1{table QD Losartan Potassium Potassium t} Potassium 100 MG 100 MG 100 MG Tumersaid Tumersaid No Tumersaid amLODIPine amLODIPine No 1{table QD amLODIPine Besylate 5 Besylate 5 t} Besylate 5 MG MG MG Calcium + D Calcium + D No Calcium + D Losartan Losartan No 1{table QD Losartan Potassium Potassium t} Potassium 100 MG 100 MG 100 MG amLODIPine amLODIPine No 1{table QD amLODIPine Besylate 5 Besylate 5 t} Besylate 5 MG MG MG Ipratropium Ipratropium No 2{puffs QID Ipratropiu Galva HFA Galva HFA } m Galva 17 MCG/ACT 17 MCG/ACT HFA 17 MCG/ACT Multi Multi No Multi Vitamin Vitamin Vitamin labetalol labetalol No labetalol 200mg 200mg 200mg CoQ-10 CoQ-10 No CoQ-10 Losartan Losartan No 1{table QD Losartan Potassium Potassium t} Potassium 100 MG 100 MG 100 MG Garlic 400 Garlic 400 No Garlic 400 MG MG MG Fish Oil Fish Oil No 1{capsu QD Fish Oil 1200 MG 1200 MG le} 1200 MG Pantoprazol Pantoprazol No 1{table QD Pantoprazo e Sodium 40 e Sodium 40 t} le Sodium MG MG 40 MG Tumersaid Tumersaid No Tumersaid Aspirin 81 Aspirin 81 No 1{table QD Aspirin 81 81 MG 81 MG t} 81 MG Osteo Osteo No Osteo Bi-Flex One Bi-Flex One Bi-Flex Per Day Per Day One Per Day amLODIPine amLODIPine No 1{table QD amLODIPine Besylate 5 Besylate 5 t} Besylate 5 MG MG MG Calcium + D Calcium + D No Calcium + D Loratadine Loratadine No 1{table QD Loratadine 10 MG 10 MG t} 10 MG Ipratropium Ipratropium No 2{puffs QID Ipratropiu Galva HFA Galva HFA } m Galva 17 MCG/ACT 17 MCG/ACT HFA 17 MCG/ACT Multi Multi No Multi Vitamin Vitamin Vitamin labetalol labetalol No labetalol 200mg 200mg 200mg CoQ-10 CoQ-10 No CoQ-10 Losartan Losartan No 1{table QD Losartan Potassium Potassium t} Potassium 100 MG 100 MG 100 MG Garlic 400 Garlic 400 No Garlic 400 MG MG MG Fish Oil Fish Oil No 1{capsu QD Fish Oil 1200 MG 1200 MG le} 1200 MG Pantoprazol Pantoprazol No 1{table QD Pantoprazo e Sodium 40 e Sodium 40 t} le Sodium MG MG 40 MG Tumersaid Tumersaid No Tumersaid Aspirin 81 Aspirin 81 No 1{table QD Aspirin 81 81 MG 81 MG t} 81 MG Osteo Osteo No Osteo Bi-Flex One Bi-Flex One Bi-Flex Per Day Per Day One Per Day amLODIPine amLODIPine No 1{table QD amLODIPine Besylate 5 Besylate 5 t} Besylate 5 MG MG MG Calcium + D Calcium + D No Calcium + D Loratadine Loratadine No 1{table QD Loratadine 10 MG 10 MG t} 10 MG Loratadine Loratadine No 1{table QD Loratadine 10 MG 10 MG t} 10 MG Aspirin 81 Aspirin 81 No 1{table QD Aspirin 81 81 MG 81 MG t} 81 MG Ipratropium Ipratropium No 2{puffs QID Ipratropiu Galva HFA Galva HFA } m Galva 17 MCG/ACT 17 MCG/ACT HFA 17 MCG/ACT Levothyroxi Levothyroxi No QD Levothyrox ne Sodium ne Sodium ine Sodium 75 MCG 75 MCG 75 MCG CoQ-10 CoQ-10 No CoQ-10 Losartan Losartan No 1{table QD Losartan Potassium Potassium t} Potassium 100 MG 100 MG 100 MG Fish Oil Fish Oil No 1{capsu QD Fish Oil 1200 MG 1200 MG le} 1200 MG Garlic 400 Garlic 400 No Garlic 400 MG MG MG Calcium + D Calcium + D No Calcium + D Osteo Osteo No Osteo Bi-Flex One Bi-Flex One Bi-Flex Per Day Per Day One Per Day Multi Multi No Multi Vitamin Vitamin Vitamin Tumersaid Tumersaid No Tumersaid amLODIPine amLODIPine No 1{table QD amLODIPine Besylate 5 Besylate 5 t} Besylate 5 MG MG MG Pantoprazol Pantoprazol No 1{table QD Pantoprazo e Sodium 40 e Sodium 40 t} le Sodium MG MG 40 MG labetalol labetalol No labetalol 200mg 200mg 200mg Loratadine Loratadine No 1{table QD Loratadine 10 MG 10 MG t} 10 MG Garlic 400 Garlic 400 No Garlic 400 MG MG MG Calcium + D Calcium + D No Calcium + D CoQ-10 CoQ-10 No CoQ-10 Ipratropium Ipratropium No 2{puffs QID Ipratropiu Galva HFA Galva HFA } m Galva 17 MCG/ACT 17 MCG/ACT HFA 17 MCG/ACT Levothyroxi Levothyroxi No QD Levothyrox ne Sodium ne Sodium ine Sodium 75 MCG 75 MCG 75 MCG Tumersaid Tumersaid No Tumersaid Fish Oil Fish Oil No 1{capsu QD Fish Oil 1200 MG 1200 MG le} 1200 MG Pantoprazol Pantoprazol No 1{table QD Pantoprazo e Sodium 40 e Sodium 40 t} le Sodium MG MG 40 MG Losartan Losartan No Losartan Potassium Potassium Potassium 100 MG 100 MG 100 MG Aspirin 81 Aspirin 81 No 1{table QD Aspirin 81 81 MG 81 MG t} 81 MG Osteo Osteo No Osteo Bi-Flex One Bi-Flex One Bi-Flex Per Day Per Day One Per Day amLODIPine amLODIPine No 1{table QD amLODIPine Besylate 5 Besylate 5 t} Besylate 5 MG MG MG Multi Multi No Multi Vitamin Vitamin Vitamin labetalol labetalol No labetalol 200mg 200mg 200mg Ipratropium Ipratropium No 2{puffs QID Ipratropiu Galva HFA Galva HFA } m Galva 17 MCG/ACT 17 MCG/ACT HFA 17 MCG/ACT Loratadine Loratadine No 1{table QD Loratadine 10 MG 10 MG t} 10 MG labetalol labetalol No labetalol 200mg 200mg 200mg Tumersaid Tumersaid No Tumersaid ZyrTEC ZyrTEC No ZyrTEC Losartan Losartan No 1{table QD Losartan Potassium Potassium t} Potassium 100 MG 100 MG 100 MG Aspirin 81 Aspirin 81 No 1{table QD Aspirin 81 81 MG 81 MG t} 81 MG Loratadine Loratadine No 1{table QD Loratadine 10 MG 10 MG t} 10 MG amLODIPine amLODIPine No 1{table QD amLODIPine Besylate 5 Besylate 5 t} Besylate 5 MG MG MG Pantoprazol Pantoprazol No 1{table QD Pantoprazo e Sodium 40 e Sodium 40 t} le Sodium MG MG 40 MG CoQ-10 CoQ-10 No CoQ-10 Fish Oil Fish Oil No 1{capsu QD Fish Oil 1200 MG 1200 MG le} 1200 MG Osteo Osteo No Osteo Bi-Flex One Bi-Flex One Bi-Flex Per Day Per Day One Per Day Calcium + D Calcium + D No Calcium + D Losartan Losartan No Losartan Potassium Potassium Potassium 100 MG 100 MG 100 MG Levothyroxi Levothyroxi No QD Levothyrox ne Sodium ne Sodium ine Sodium 75 MCG 75 MCG 75 MCG Multi Multi No Multi Vitamin Vitamin Vitamin Garlic 400 Garlic 400 No Garlic 400 MG MG MG Garlic 400 Garlic 400 No Garlic 400 MG MG MG amLODIPine amLODIPine No 1{table QD amLODIPine Besylate 5 Besylate 5 t} Besylate 5 MG MG MG Garlic 400 Garlic 400 No Garlic 400 MG MG MG Calcium + D Calcium + D No Calcium + D Calcium + D Calcium + D No Calcium + D Fish Oil Fish Oil No 1{capsu QD Fish Oil 1200 MG 1200 MG le} 1200 MG CoQ-10 CoQ-10 No CoQ-10 ZyrTEC ZyrTEC No ZyrTEC labetalol labetalol No labetalol 200mg 200mg 200mg Osteo Osteo No Osteo Bi-Flex One Bi-Flex One Bi-Flex Per Day Per Day One Per Day Losartan Losartan No 1{table QD Losartan Potassium Potassium t} Potassium 100 MG 100 MG 100 MG Aspirin 81 Aspirin 81 No 1{table QD Aspirin 81 81 MG 81 MG t} 81 MG Pantoprazol Pantoprazol No 1{table QD Pantoprazo e Sodium 40 e Sodium 40 t} le Sodium MG MG 40 MG Levothyroxi Levothyroxi No QD Levothyrox ne Sodium ne Sodium ine Sodium 75 MCG 75 MCG 75 MCG CoQ-10 CoQ-10 No CoQ-10 Multi Multi No Multi Vitamin Vitamin Vitamin Losartan Losartan No Losartan Potassium Potassium Potassium 100 MG 100 MG 100 MG Tumersaid Tumersaid No Tumersaid Ipratropium Ipratropium No 2{puffs QID Ipratropiu Galva HFA Galva HFA } m Galva 17 MCG/ACT 17 MCG/ACT HFA 17 MCG/ACT Loratadine Loratadine No 1{table QD Loratadine 10 MG 10 MG t} 10 MG Ipratropium Ipratropium No 2{puffs QID Ipratropiu Galva HFA Galva HFA } m Galva 17 MCG/ACT 17 MCG/ACT HFA 17 MCG/ACT Levothyroxi Levothyroxi No QD Levothyrox ne Sodium ne Sodium ine Sodium 75 MCG 75 MCG 75 MCG Tumersaid Tumersaid No Tumersaid Osteo Osteo No Osteo Bi-Flex One Bi-Flex One Bi-Flex Per Day Per Day One Per Day Fish Oil Fish Oil No 1{capsu QD Fish Oil 1200 MG 1200 MG le} 1200 MG Loratadine Loratadine No 1{table QD Loratadine 10 MG 10 MG t} 10 MG Garlic 400 Garlic 400 No Garlic 400 MG MG MG Calcium + D Calcium + D No Calcium + D Losartan Losartan No 1{table QD Losartan Potassium Potassium t} Potassium 100 MG 100 MG 100 MG Multi Multi No Multi Vitamin Vitamin Vitamin Fish Oil Fish Oil No 1{capsu QD Fish Oil 1200 MG 1200 MG le} 1200 MG amLODIPine amLODIPine No 1{table QD amLODIPine Besylate 5 Besylate 5 t} Besylate 5 MG MG MG Tumersaid Tumersaid No Tumersaid labetalol labetalol No labetalol 200mg 200mg 200mg Aspirin 81 Aspirin 81 No 1{table QD Aspirin 81 81 MG 81 MG t} 81 MG Ipratropium Ipratropium No 2{puffs QID Ipratropiu Galva HFA Galva HFA } m Galva 17 MCG/ACT 17 MCG/ACT HFA 17 MCG/ACT Losartan Losartan No Losartan Potassium Potassium Potassium 100 MG 100 MG 100 MG Pantoprazol Pantoprazol No 1{table QD Pantoprazo e Sodium 40 e Sodium 40 t} le Sodium MG MG 40 MG Levothyroxi Levothyroxi No QD Levothyrox ne Sodium ne Sodium ine Sodium 75 MCG 75 MCG 75 MCG CoQ-10 CoQ-10 No CoQ-10 ZyrTEC ZyrTEC No ZyrTEC Pantoprazol Pantoprazol No 1{table QD Pantoprazo e Sodium 40 e Sodium 40 t} le Sodium MG MG 40 MG Losartan Losartan No Losartan Potassium Potassium Potassium 100 MG 100 MG 100 MG Garlic 400 Garlic 400 No Garlic 400 MG MG MG Osteo Osteo No Osteo Bi-Flex One Bi-Flex One Bi-Flex Per Day Per Day One Per Day labetalol labetalol No labetalol 200mg 200mg 200mg Calcium + D Calcium + D No Calcium + D amLODIPine amLODIPine No amLODIPine Besylate 5 Besylate 5 Besylate 5 MG MG MG Multi Multi No Multi Vitamin Vitamin Vitamin Losartan Losartan No Losartan Potassium Potassium Potassium 100 MG 100 MG 100 MG Pantoprazol Pantoprazol No 1{table QD Pantoprazo e Sodium 40 e Sodium 40 t} le Sodium MG MG 40 MG Aspirin 81 Aspirin 81 No 1{table QD Aspirin 81 81 MG 81 MG t} 81 MG Tumersaid Tumersaid No Tumersaid Aspirin 81 Aspirin 81 No 1{table QD Aspirin 81 81 MG 81 MG t} 81 MG ZyrTEC ZyrTEC No ZyrTEC Loratadine Loratadine No 1{table QD Loratadine 10 MG 10 MG t} 10 MG Ipratropium Ipratropium No 2{puffs QID Ipratropiu Galva HFA Galva HFA } m Galva 17 MCG/ACT 17 MCG/ACT HFA 17 MCG/ACT Levothyroxi Levothyroxi No QD Levothyrox ne Sodium ne Sodium ine Sodium 75 MCG 75 MCG 75 MCG CoQ-10 CoQ-10 No CoQ-10 Fish Oil Fish Oil No 1{capsu QD Fish Oil 1200 MG 1200 MG le} 1200 MG Osteo Osteo No Osteo Bi-Flex One Bi-Flex One Bi-Flex Per Day Per Day One Per Day Garlic 400 Garlic 400 No Garlic 400 MG MG MG Osteo Osteo No Osteo Bi-Flex One Bi-Flex One Bi-Flex Per Day Per Day One Per Day labetalol labetalol No labetalol 200mg 200mg 200mg Calcium + D Calcium + D No Calcium + D amLODIPine amLODIPine No amLODIPine Besylate 5 Besylate 5 Besylate 5 MG MG MG Immunizations Ordered Immunization Filled Immunization Date Status Commen ts Source Name Name FLUZONE HIGH DOSE FLUZONE HIGH DOSE 2021-11-16 Completed [facility] - OVER 65 OVER 65 10:02:00 [facility] FLUZONE HIGH DOSE FLUZONE HIGH DOSE 2021-11-16 Completed [facility] - OVER 65 OVER 65 10:02:00 [facility] FLUZONE HIGH DOSE FLUZONE HIGH DOSE 2021-11-16 Completed [facility] - OVER 65 OVER 65 10:02:00 [facility] FLUZONE HIGH DOSE FLUZONE HIGH DOSE 2021-11-16 Completed [facility] - OVER 65 OVER 65 10:02:00 [facility] FLUZONE HIGH DOSE FLUZONE HIGH DOSE 2021-11-16 Completed [facility] - OVER 65 OVER 65 10:02:00 [facility] FLUZONE HIGH DOSE FLUZONE HIGH DOSE 2021-11-16 Completed [facility] - OVER 65 OVER 65 10:02:00 [facility] FluAD FluAD 2020-12-11 Completed [facility] - 15:46:00 [facility] FluAD FluAD 2020-12-11 Completed [facility] - 15:46:00 [facility] FluAD FluAD 2020-12-11 Completed [facility] - 15:46:00 [facility] FluAD FluAD 2020-12-11 Completed [facility] - 15:46:00 [facility] FluAD FluAD 2020-12-11 Completed [facility] - 15:46:00 [facility] FluAD FluAD 2020-12-11 Completed [facility] - 15:46:00 [facility] FluAD FluAD 2020-12-11 Completed [facility] - 15:46:00 [facility] FluAD FluAD 2020-12-11 Completed [facility] - 15:46:00 [facility] FluAD FluAD 2020-12-11 Completed [facility] - 15:46:00 [facility] FluAD FluAD 2020-12-11 Completed [facility] - 15:46:00 [facility] FluAD FluAD 2020-12-11 Completed [facility] - 15:46:00 [facility] FluAD FluAD 2020-12-11 Completed [facility] - 15:46:00 [facility] FluAD FluAD 2020-12-11 Completed [facility] - 15:46:00 [facility] FluAD FluAD 2020-12-11 Completed [facility] - 15:46:00 [facility] FluAD FluAD 2020-12-11 Completed [facility] - 15:46:00 [facility] FluAD FluAD 2020-12-11 Completed [facility] - 15:46:00 [facility] FluAD FluAD 2020-12-11 Completed [facility] - 15:46:00 [facility] FluAD FluAD 2020-12-11 Completed [facility] - 15:46:00 [facility] FluAD FluAD 2020-12-11 Completed [facility] - 15:46:00 [facility] FluAD FluAD 2020-12-11 Completed [facility] - 15:46:00 [facility] FluAD FluAD 2020-12-11 Completed [facility] - 15:46:00 [facility] FluAD FluAD 2020-12-11 Completed [facility] - 15:46:00 [facility] FluAD FluAD 2020-12-11 Completed [facility] - 15:46:00 [facility] FluAD FluAD 2020-12-11 Completed [facility] - 15:46:00 [facility] FluAD FluAD 2020-12-11 Completed [facility] - 15:46:00 [facility] FluAD FluAD 2020-12-11 Completed [facility] - 15:46:00 [facility] FluAD FluAD 2020-12-11 Completed [facility] - 15:46:00 [facility] FluAD FluAD 2020-12-11 Completed [facility] - 15:46:00 [facility] FluAD FluAD 2020-12-11 Completed [facility] - 15:46:00 [facility] FluAD FluAD 2020-12-11 Completed [facility] - 15:46:00 [facility] FluAD FluAD 2020-12-11 Completed [facility] - 15:46:00 [facility] FluAD FluAD 2020-12-11 Completed [facility] - 15:46:00 [facility] FluAD FluAD 2020-12-11 Completed [facility] - 15:46:00 [facility] FluAD FluAD 2020-12-11 Completed [facility]00 [facility] COVID-19 2020-04-19 [facility] Prevnar 13 (PCV13) Prevnar 13 (PCV13) 2019-02-20 Completed [facility] - 13:45:00 [facility] Prevnar 13 (PCV13) Prevnar 13 (PCV13) 2019-02-20 Completed [facility] - 13:45:00 [facility] Prevnar 13 (PCV13) Prevnar 13 (PCV13) 2019-02-20 Completed [facility] - 13:45:00 [facility] Prevnar 13 (PCV13) Prevnar 13 (PCV13) 2019-02-20 Completed [facility] - 13:45:00 [facility] Prevnar 13 (PCV13) Prevnar 13 (PCV13) 2019-02-20 Completed [facility] - 13:45:00 [facility] Prevnar 13 (PCV13) Prevnar 13 (PCV13) 2019-02-20 Completed [facility] - 13:45:00 [facility] Prevnar 13 (PCV13) Prevnar 13 (PCV13) 2019-02-20 Completed [facility] - 13:45:00 [facility] Prevnar 13 (PCV13) Prevnar 13 (PCV13) 2019-02-20 Completed [facility] - 13:45:00 [facility] Prevnar 13 (PCV13) Prevnar 13 (PCV13) 2019-02-20 Completed [facility] - 13:45:00 [facility] Prevnar 13 (PCV13) Prevnar 13 (PCV13) 2019-02-20 Completed [facility] - 13:45:00 [facility] Prevnar 13 (PCV13) Prevnar 13 (PCV13) 2019-02-20 Completed [facility] - 13:45:00 [facility] Prevnar 13 (PCV13) Prevnar 13 (PCV13) 2019-02-20 Completed [facility] - 13:45:00 [facility] Prevnar 13 (PCV13) Prevnar 13 (PCV13) 2019-02-20 Completed [facility] - 13:45:00 [facility] Prevnar 13 (PCV13) Prevnar 13 (PCV13) 2019-02-20 Completed [facility] - 13:45:00 [facility] Prevnar 13 (PCV13) Prevnar 13 (PCV13) 2019-02-20 Completed [facility] - 13:45:00 [facility] Prevnar 13 (PCV13) Prevnar 13 (PCV13) 2019-02-20 Completed [facility] - 13:45:00 [facility] Prevnar 13 (PCV13) Prevnar 13 (PCV13) 2019-02-20 Completed [facility] [facility] Pre[facility]ar 13 (PCV13) Prevnar 13 (PCV13) 2019-02-20 [facility]00 [facility] Prevnar 13 (PCV13) Prevnar 13 (PCV13) 2019-02-20 [facility]pleted [facility]00 [facility] Prevnar 13 (PCV13) Prevnar 13 (PCV13) 2019-02-20 [facility]pleted [facility]00 [facility] Prevnar 13 (PCV13) Prevnar 13 (PCV13) 2019-02-20 [facility]pleted [facility]00 [facility] Prevnar 13 (PCV13) Prevnar 13 (PCV13) 2019-02-20 [facility]pleted [facility]00 [facility] Prevnar 13 (PCV13) Prevnar 13 (PCV13) 2019-02-20 [facility]pleted [facility]:00 [facility] Prevnar 13 (PCV13) Prevnar 13 (PCV13) 2019-02-20 Completed [facility] 13:[facility]:00 [facility] Prevnar 13 (PCV13) Prevnar 13 (PCV13) 2019-02-20 [facility]pleted [facility]:00 [facility] Prevnar 13 (PCV13) Prevnar 13 (PCV13) 2019-02-20 Completed [facility] 13:[facility]:00 [facility] Prevnar 13 (PCV13) Prevnar 13 (PCV13) 2019-02-20 Completed [facility] 13:[facility]:00 [facility] Prevnar 13 (PCV13) Prevnar 13 (PCV13) 2019-02-20 [facility]pleted [facility] 13:[facility]:00 [facility] Prevnar 13 (PCV13) Prevnar 13 (PCV13) 2019-02-20 Completed [facility] 13:[facility]:00 [facility] Prevnar 13 (PCV13) Prevnar 13 (PCV13) 2019-02-20 [facility]pleted [facility] 13:[facility]:00 [facility] Prevnar 13 (PCV13) Prevnar 13 (PCV13) 2019-02-20 [facility]pleted [facility] 13:45:00 [facility] Prevnar 13 (PCV13) Prevnar 13 (PCV13) 2019-02-20 [facility]pleted [facility]:00 [facility] Prevnar 13 (PCV13) Prevnar 13 (PCV13) 2019-02-20 [facility]pleted [facility] 13:45:00 [facility] Prevnar 13 (PCV13) Prevnar 13 (PCV13) 2019-02-20 [facility]pleted [facility] 13[facility]:00 [facility] Shingrix Shingrix 2018-12-21 Completed [facility] 13:45:00 [facility] Shingrix Shingrix 2018-12-21 Completed [facility] 13[facility]45:00 [facility] Shingrix Shingrix 2018-12-21 Completed [facility] 13:45:00 [facility] Shingrix Shingrix 2018-12-21 Completed [facility] 13:45:00 [facility] Shingrix Shingrix 2018-12-21 Completed [facility] 13:45:00 [facility] Shingrix Shingrix 2018-12-21 Completed [facility] 13:45:00 [facility] Shingrix Shingrix 2018-12-21 Completed [facility] 13:45:00 [facility] Shingrix Shingrix 2018-12-21 Completed [facility] 13:45:00 [facility] Shingrix Shingrix 2018-12-21 Completed [facility] 13:45:00 [facility] Shingrix Shingrix 2018-12-21 Completed [facility] 13:45:00 [facility] Shingrix Shingrix 2018-12-21 Completed [facility] 13:45:00 [facility] Shingrix Shingrix 2018-12-21 Completed [facility] 13:45:00 [facility] Shingrix Shingrix 2018-12-21 Completed [facility] 13:45:00 [facility] Shingrix Shingrix 2018-12-21 Completed [facility] 13:45:00 [facility] Shingrix Shingrix 2018-12-21 Completed [facility] 13:45:00 [facility] Shingrix Shingrix 2018-12-21 Completed [facility] 13:45:00 [facility] Shingrix Shingrix 2018-12-21 Completed [facility] 13:45:00 [facility] Shingrix Shingrix 2018-12-21 Completed [facility] 13:45:00 [facility] Shingrix Shingrix 2018-12-21 Completed [facility] 13:45:00 [facility] Shingrix Shingrix 2018-12-21 Completed [facility] 13:45:00 [facility] Shingrix Shingrix 2018-12-21 Completed [facility] 13:45:00 [facility] Shingrix Shingrix 2018-12-21 Completed [facility] 13:45:00 [facility] Shingrix Shingrix 2018-12-21 Completed [facility] 13:45:00 [facility] Shingrix Shingrix 2018-12-21 Completed [facility] 13:45:00 [facility] Shingrix Shingrix 2018-12-21 Completed [facility] 13:45:00 [facility] Shingrix Shingrix 2018-12-21 Completed [facility] 13:45:00 [facility] Shingrix Shingrix 2018-12-21 Completed [facility] 13:45:00 [facility] Shingrix Shingrix 2018-12-21 Completed [facility] 13:45:00 [facility] Shingrix Shingrix 2018-12-21 Completed [facility] 13:45:00 [facility] Shingrix Shingrix 2018-12-21 Completed [facility] 13:45:00 [facility] Shingrix Shingrix 2018-12-21 Completed [facility] 13:45:00 [facility] Shingrix Shingrix 2018-12-21 Completed [facility] 13:45:00 [facility] Shingrix Shingrix 2018-12-21 Completed [facility] 13:45:00 [facility] Kang Kapadia 2018-12-21 Completed [facility] - 13:45:00 [facility] Vital Signs Vital Name Observation Time Observation Value Comments Source height 2022-02-08 11:00:00 63.5 [in_i] [facility] weight 2022-02-08 11:00:00 138 [lb_av] [facility] temperature 2022-02-08 11:00:00 98.2 [degF] [facility] bmi 2022-02-08 11:00:00 24.06 kg/m2 [facility] blood pressure 2022-02-08 11:00:00 138 mm[Hg] [facility] [place] [place] - systolic [facility] blood pressure 2022-02-08 11:00:00 72 mm[Hg] [facility] - diastolic [facility] height 2021-12-10 09:30:00 63.5 [in_i] [facility] weight 2021-12-10 09:30:00 138.22 [lb_av] [facility] temperature 2021-12-10 09:30:00 96.5 [degF] [facility] bmi 2021-12-10 09:30:00 24.1 kg/m2 [facility] pirit [facility] blood pressure 2021-12-10 09:30:00 136 mm[Hg] [facility] - systolic [facility] blood pressure 2021-12-10 09:30:00 84 mm[Hg] [facility] - diastolic [facility] height 2021-11-16 09:40:00 64 [in_i] [facility] weight 2021-11-16 09:40:00 137.7 [lb_av] [facility] temperature 2021-11-16 09:40:00 97.8 [degF] [facility] pirit [facility] bmi 2021-11-16 09:40:00 23.63 kg/m2 [facility] - [facility] oximetry 2021-11-16 09:40:00 97 % [facility] respiratory rate 2021-11-16 09:40:00 17 /min [facility] - [facility] blood pressure 2021-11-16 09:40:00 138 mm[Hg] Common [facility] - systolic [facility] blood pressure 2021-11-16 09:40:00 78 mm[Hg] [facility] - diastolic [facility] height 2021-10-07 09:40:00 64 [in_i] [facility] weight 2021-10-07 09:40:00 130 [lb_av] [facility] temperature 2021-10-07 09:40:00 98 [degF] [facility] bmi 2021-10-07 09:40:00 22.31 kg/m2 [facility] blood pressure 2021-10-07 09:40:00 132 mm[Hg] [facility] - systolic [facility] blood pressure 2021-10-07 09:40:00 72 mm[Hg] [facility] - diastolic [facility] Systolic blood 2021-09-03 15:45:00 154 mm[Hg] [facility] Diastolic blood 2021-09-03 15:45:00 59 mm[Hg] [facility] Heart rate 2021-09-03 15:44:00 46 /min [facility] Body temperature 2021-09-03 15:44:00 36.11 Kiarra [facility] 2021-09-03 15:44:00 16 /min [facility] height 2021-09-03 15:44:00 158.8 cm [facility] Body weight 2021-09-03 15:44:00 58.514 kg [facility] BMI 2021-09-03 15:44:00 23.22 kg/m2 [facility] Oxygen saturation in 2021-09-03 15:44:00 100 /min [facility] Arterial blood by [facility] Pulse oximetry Branch height 2021-08-21 08:00:00 64 [in_i] [facility] weight 2021-08-21 08:00:00 127.2 [lb_av] [facility] temperature 2021-08-21 08:00:00 97.6 [degF] [facility] bmi 2021-08-21 08:00:00 21.83 kg/m2 [facility] oximetry 2021-08-21 08:00:00 98 % [facility] respiratory rate 2021-08-21 08:00:00 17 /min [facility] blood pressure 2021-08-21 08:00:00 135 mm[Hg] Common [facility] - systolic [facility] blood pressure 2021-08-21 08:00:00 76 mm[Hg] [facility] - diastolic [facility] height 2021-07-30 11:30:00 64 [in_i] [facility] weight 2021-07-30 11:30:00 128.1 [lb_av] [facility] temperature 2021-07-30 11:30:00 98.0 [degF] [facility] bmi 2021-07-30 11:30:00 21.99 kg/m2 [facility] oximetry 2021-07-30 11:30:00 98 % [facility] respiratory rate 2021-07-30 11:30:00 17 /min [facility] blood pressure 2021-07-30 11:30:00 142 mm[Hg] Common [facility] - systolic [facility] blood pressure 2021-07-30 11:30:00 61 mm[Hg] [facility] - diastolic [facility] height 2021-07-16 08:50:00 64 [in_i] [facility] weight 2021-07-16 08:50:00 126.1 [lb_av] [facility] temperature 2021-07-16 08:50:00 97.9 [degF] [facility] bmi 2021-07-16 08:50:00 21.64 kg/m2 [facility] oximetry 2021-07-16 08:50:00 99 % [facility] respiratory rate 2021-07-16 08:50:00 18 /min [facility] blood pressure 2021-07-16 08:50:00 134 mm[Hg] [facility] systolic [facility] blood pressure 2021-07-16 08:50:00 78 mm[Hg] [facility] height 2021-06-05 10:20:00 64 [in_i] [facility] weight 2021-06-05 10:20:00 125 [lb_av] [facility] temperature 2021-06-05 10:20:00 97.6 [degF] [facility] bmi 2021-06-05 10:20:00 21.45 kg/m2 [facility] height 2021-04-21 09:20:00 64 [in_i] [facility] weight 2021-04-21 09:20:00 125.5 [lb_av] [facility] temperature 2021-04-21 09:20:00 98.1 [degF] [facility] bmi 2021-04-21 09:20:00 21.54 kg/m2 [facility] oximetry 2021-04-21 09:20:00 99 % [facility] respiratory rate 2021-04-21 09:20:00 14 /min [facility] blood pressure 2021-04-21 09:20:00 138 mm[Hg] [facility] - systolic [facility] blood pressure 2021-04-21 09:20:00 70 mm[Hg] [facility] - diastolic [facility] height 2021-04-21 09:40:00 64 [in_i] [facility] weight 2021-04-21 09:40:00 125.5 [lb_av] [facility] - [facility] temperature 2021-04-21 09:40:00 98.1 [degF] [facility] bmi 2021-04-21 09:40:00 21.54 kg/m2 [facility] oximetry 2021-04-21 09:40:00 99 % [facility] respiratory rate 2021-04-21 09:40:00 14 /min [facility] blood pressure 2021-04-21 09:40:00 138 mm[Hg] [facility] - systolic [facility] blood pressure 2021-04-21 09:40:00 70 mm[Hg] [facility] - diastolic [facility] height 2021-03-06 08:40:00 64 [in_i] [facility] weight 2021-03-06 08:40:00 130 [lb_av] [facility] temperature 2021-03-06 08:40:00 98 [degF] [facility] bmi 2021-03-06 08:40:00 22.31 kg/m2 [facility] blood pressure 2021-03-06 08:40:00 131 mm[Hg] [facility] - systolic [facility] blood pressure 2021-03-06 08:40:00 65 mm[Hg] [facility] - diastolic [facility] height 2021-01-19 13:50:00 64 [in_i] [facility] weight 2021-01-19 13:50:00 130.4 [lb_av] [facility] - [facility] temperature 2021-01-19 13:50:00 98.2 [degF] [facility] bmi 2021-01-19 13:50:00 22.38 kg/m2 [facility] oximetry 2021-01-19 13:50:00 99 % [facility] respiratory rate 2021-01-19 13:50:00 18 /min [facility] blood pressure 2021-01-19 13:50:00 134 mm[Hg] [facility] - systolic [facility] blood pressure 2021-01-19 13:50:00 68 mm[Hg] [facility] - diastolic [facility] height 2020-12-11 16:00:00 64 [in_i] [facility] weight 2020-12-11 16:00:00 137.7 [lb_av] [facility] temperature 2020-12-11 16:00:00 97.4 [degF] [facility] bmi 2020-12-11 16:00:00 23.63 kg/m2 [facility] oximetry 2020-12-11 16:00:00 98 % [facility] respiratory rate 2020-12-11 16:00:00 17 /min [facility] blood pressure 2020-12-11 16:00:00 126 mm[Hg] [facility] - systolic [facility] blood pressure 2020-12-11 16:00:00 72 mm[Hg] [facility] - diastolic [facility] Systolic blood 2020-12-09 15:39:00 175 mm[Hg] Univer sity of pressure [facility] Diastolic blood 2020-12-09 15:39:00 88 mm[Hg] Unive rsity of pressure [facility] Heart rate 2020-12-09 15:39:00 70 /min [facility] Respiratory rate 2020-12-09 15:39:00 20 /min [facility] Oxygen saturation in 2020-12-09 15:39:00 98 /min [facility] Arterial blood by [facility] Pulse oximetry Branch Systolic blood 2021-07-15 14:21:00 223 mm[Hg] Method [facility] pressure Diastolic blood 2021-07-15 14:21:00 91 mm[Hg[facility] Heart rate 2021-07-15 14:21:00 66 /min [facility] Body temperature 2021-07-15 14:21:00 36.83 Kiarra [facility] Body height 2021-07-15 14:21:00 162.6 cm [facility] Body weight 2021-07-15 14:21:00 57.607 kg [facility] BMI 2021-07-15 14:21:00 21.80 kg/m2 [facility] Oxygen saturation in 2021-07-15 14:21:00 99 /min [facility] Arterial blood by Pulse oximetry Respiratory rate 2021-07-01 12:48:14 19 /min [facility] Procedures Procedure Date / Time Performing Clinician Source Performed XR SHOULDER 2+ VW RIGHT 2021-09-03 16:06:53 Verónica Arce [facility] PARATHYROID HORMONE 2021-07-01 10:52:00 [facility] 2021-07-01 10:52:00 [facility] PARATHYROID HORMONE 2021-06-30 18:07[facility]00 [facility] CALCI[facility] LEVEL 2021-06-30 18:07:00 Derrek Joshi [facility] spital PTH INTRAOPERATIVE 2021-06-30 17:13:00 [facility] PTH INTRAOPERATIVE 2021-06-30 16:31:00 [facility] PTH INTRAOPERATIVE 2021-06-30 16:15:00 [facility] PTH INTRAOPERATIVE 2021-06-30 16:10:00 [facility] PTH INTRAOPERATIVE 2021-06-30 16:05:00 [facility] SURGICAL PATHOLOGY 2021-06-30 16:02:00 [facility] REQUEST PTH INTRAOPERATIVE 2021-06-30 16:00:00 [facility] ANESTHESIA INTUBATION 2021-06-30 14:33:[address] [facility] LOBECTOMY, THYROID, TOTAL 2021-06-30 14:19:00 [facility] PTH INTRAOPERATIVE 2021-06-30 13:09:00 [facility] COVID-19 QUALITATIVE 2021-06-15 16:39:00 [facility] RT-PCR COVID-19 OMICRON VARIANT 2021-06-15 16:39:00 [facility] QUALITATIVE RT-PCR HEMOGLOBIN A1C 2021-06-02 15:51:00 [facility] COMPREHENSIVE METABOLIC 2021-06-02 15:51:00 [facility] COMPLETE BLD COUNT 2021-06-02 15:51[facility]00 [facility]O DIFF CALCIUM LEVEL 2021-06-02 15:51:00 [facility] Ho spital PARATHYROID HORMONE 2021-06-02 15:51:00 [facility] ESTIMATED GFR 2021-06-02 15:51:00 [facility] XR CHEST 1 VW PORTABLE 2021-05-27 21:23:00 Sammy [facility] ECG ED PRELIMINARY 2021-05-27 20:49:06 Sammy [facility] INTERPRETATION HC COMPLETE BLD COUNT 2021-05-27 20:27:00 Sammy [facility] W/AUTO DIFF COMPREHENSIVE METABOLIC 2021-05-27 20:27:00 [facility] TROPONIN T 2021-05-27 20:27:00 [facility] ESTIM[facility] GFR 2021-05-27 20:27:00 [facility] ECG 12-LEAD 2021-05-27 20:04:[address] SOFT TISSUE NECK W WO 2021-05-27 18:20:00 Magy Dye Met [facility] CONTRAST POC CREATININE 2021-05-27 17:19:00 Magy Dye [facility] ESTIMATED GFR 2021-05-27 17:19:00 Magy Dye Ho spital AUTHORIZATION FOR RELEASE 2021-05-20 05:01:00 Doctor Unassigned, [facility] CYTO ORGAN ASPIRATION-FNA 2020-12-09 16:15:00 Raffy Murguia [facility] Plan of Care Planned Activity Planned Date Details Comments Source Future Scheduled 2022-03-09 Hepatitis C screening [facility] Test 01:22:24 (procedure) [code = 964063777] Future Scheduled 2022-03-09 BREAST CANCER [facility] Test 01:22:24 SCREENING [code = BREAST CANCER SCREENING] Future Scheduled 2022-03-[address] [facility] Test 01:22:24 [code = COLONOSCOPY SCREENING] Future Scheduled 2022-03-09 SHINGLES VACCINES (2 Met [facility] Test 01:22:24 of 2) [code = SHINGLES VACCINES (2 of 2)] Future Scheduled 2022-03-09 65+ [facility]24 VACCINE (2 - PPSV23 if available, else PCV20) [code = 65+ PNEUMOCOCCAL VACCINE (2 - PPSV23 if available, else PCV20)] Future Scheduled 2022-03-09 COVID-19 VACCINE (3 - [facility] Test 01:22:24 Booster for Moderna series) [code = COVID-19 VACCINE (3 - Booster for Moderna series)] Future Scheduled 2022-03-09 INFLUENZA VACCINE Method [facility] Test 01:22:24 [code = INFLUENZA VACCINE] Future Scheduled 2021-10-15 HEPATITIS B VACCINES Met [facility] Test 07:11:41 (1 of 3 - 3-dose series) [code = HEPATITIS B VACCINES (1 of 3 - 3-dose series)] Future Scheduled 2021-10-15 Hepatitis C screening [facility] Test 07:11:41 (procedure) [code = [id number]] Future Scheduled 2021-10-15 BREAST CANCER [facility] Test 07:11:41 SCREENING [code = BREAST CANCER SCREENING] Future Scheduled 2021-10-[address] [facility] Test 07:11:41 [code = COLONOSCOPY SCREENING] Future Scheduled 2021-10-15 SHINGLES VACCINES (2 Met [facility] Test 07:11:41 of 2) [code = SHINGLES VACCINES (2 of 2)] Future Scheduled 2021-10-15 65+ PNEUMOCOCCAL Methodi [facility] Test 07:11:41 VACCINE (2 - PPSV23 or PCV20) [code = 65+ PNEUMOCOCCAL VACCINE (2 - PPSV23 or PCV20)] Future Scheduled 2021-10-15 COVID-19 VACCINE (3 - [facility] Test 07:11:41 Booster for Moderna series) [code = COVID-19 VACCINE (3 - Booster for Moderna series)] Future Scheduled 2021-10-15 INFLUENZA VACCINE Method [facility] Test 07:11:41 [code = INFLUENZA VACCINE] Encounters Start End Encounter Admission Attending Care Care Encounter Source Date/Time Date/Time Type Type Clinicians Facility Department ID 2022-02-04 Outpatient Diego, [facility] [id number] Common 15:10:02 Alex [facility] 2021-12-10 Outpatient Diego, [facility] [id number] Common 12:15:01 Alex [facility] 2021-09-01 Outpatient Diego, [facility] [id number] Common 13:36:02 Alex [facility] 2021-06-03 Outpatient Diego, [facility] [id number] Common 13:15:03 Alex [facility] 2021-06-01 Outpatient Diego, [facility] [id number] Common 14:04:04 Alex [facility] 2021-04-21 Outpatient Diego, [facility] [id number] Common 09:11:01 Alex [facility] 2021-03-18 Outpatient Diego, [facility] [id number] Common 14:36:11 Alex [facility] 2021-03-18 Outpatient Diego, STLMLC STLMLC [id number] Common 14:13:59 Alex [id number] [facility] 2021-03-18 Outpatient Johnathon, STLMLC STLMLC [id number] Common 14:04:10 Alex [id number] [facility] 2020-12-23 Emergency [facility] [id number] Univers 06:07:49 ity [facility] 2022-03-08 2022-03-08 (TEL) STLMLC STLMLC [id number] Co mmon 00:00:00 00:00:00 [facility] 2022-03-05 2022-03-05 (TEL) STLMLC STLMLC [id number] Co mmon 00:00:00 00:00:00 [facility] 2022-02-08 2022-02-08 OFFICE STLMLC STLMLC [id number] Co mmon 00:00:00 00:00:00 VISIT [facility] ESTAB PT - [facility] LEVEL 4 [facility] 2021-12-10 2021-12-10 OFFICE STLMLC STLMLC [id number] Co mmon 00:00:00 00:00:00 VISIT NEW Spir it PT LEVEL 3 - [facility] 2021-11-16 2021-11-16 OFFICE STLMLC STLMLC [id number] Co mmon 00:00:00 00:00:00 [facility]IT [facility] ESTAB PT - [facility] LEVEL 4 [facility] 2021-11-11 2021-11-11 (TEL) STLMLC STLMLC [id number] Co mmon 00:00:00 00:00:00 [facility] 2021-10-07 2021-10-07 OFFICE STLMLC STLMLC [id number] Co mmon 00:00:00 00:00:00 VISIT [facility] ESTAB PT - CHI LEVEL 4 [facility] 2021-09-03 2021-09-03 Outpatient Patito ARCE [facility] [id number] Univers 10:52:46 23:59:00 VERÓNICA ity [facility] 2021-09-03 2021-09-03 [facility] [id number] Univers 10:52:46 23:59:00 Encounter [facility] [id number] ity of [place] [id number] Russ as TWYLA?BLEA [id number] Me diclinda LAM [address] [place] [facility] 2021-09-03 2021-09-03 Urgent Yazmin, [place] [id number] Univers 10:20:00 11:14:11 Care [facility] [id number] it y of [place] [id number] Russ as TWYLA?BLEA [id number] Me ernesto [facility] 370 [place] [facility] 2021-09-02 2021-09-02 (TEL) STLMLC STLMLC [id number] Co mmon 00:00:00 00:00:00 [facility] 2021-08-21 2021-08-21 OFFICE STLMLC STLMLC [id number] Co mmon 00:00:00 00:00:00 VISIT [facility] ESTAB PT - CHI LEVEL 4 [facility] 2021-08-20 2021-08-20 (TEL) STLMLC STLMLC [id number] Co mmon 00:00:00 00:00:00 [facility] 2021-08-14 2021-08-14 (TEL) STLMLC STLMLC [id number] Co mmon 00:00:00 00:00:00 [facility] 2021-07-30 2021-07-30 OFFICE STLMLC STLMLC [id number] Co mmon 00:00:00 00:00:00 VISIT EST Spir it PT LEVEL 3 - CHI [facility] 2021-07-21 2021-07-21 Outpatient [facility] CO[facility] PIJFJCV GPX COH 00:00:00 00:00:00 [id number] 2021-07-16 2021-07-16 OFFICE STLMLC STLMLC [id number] Co mmon 00:00:00 00:00:00 VISIT [facility] ESTAB PT - CHI LEVEL 4 [facility] 2021-07-16 2021-07-16 (TEL) STLMLC STLMLC [id number] Co mmon 00:00:00 00:00:00 [facility] 2021-07-15 2021-07-15 Office Valerie, 1.2.840.6 [id number] 26808 Methodi 09:30:00 11:52:26 Visit Helmi S 51500.1.[address] 3.430.2.7 Hospit a .3.524326 l .8 2021-07-15 2021-07-15 Office Valerie, 1.2.840.4 [id number] 16 Methodi 09:30:00 11:52:26 Visit Helmi S 82378.1.[address] 3.430.2.7 Hospit a .3.450056 l .8 2021-07-15 2021-07-15 Travel 1.2.840.1 1.2.460.297 7156 229581 Methodi 00:00:00 00:00:[address] 3.430.2.7 0.2.7.3.698 Ho spita .3.533909 084.8 l .8 2021-07-15 2021-07-15 Travel 1.2.840.1 1.2.764.868 3927 477286 Methodi 00:00:00 00:00:[address] 3.430.2.7 0.2.7.3.698 Ho spita .3.889451 084.8 l .8 2021-07-13 2021-07-13 Outpatient [facility] PIJFJCV [facility] 00:00:00 00:00:00 [id number] 523 2021-07-07 2021-07-07 (TEL) STLMLC STLMLC [id number] Co mmon 00:00:00 00:00:00 [facility] 2021-07-06 2021-07-06 Travel 1.2.840.1 1.2.092.181 6849 491725 Methodi 00:00:00 00:00:[address] 3.430.2.7 0.2.7.3.698 Ho spita .3.672500 084.8 l .8 2021-07-06 2021-07-06 Travel 1.2.840.1 1.2.673.273 1212 671987 Methodi 00:00:00 00:00:[address] 3.430.2.7 0.2.7.3.698 Ho spita .3.861507 084.8 l .8 2021-07-02 2021-07-02 Patient Josh, 1.2.840.1 [id number] 046164 6101 Methodi 00:00:00 00:00:00 Outreach Grayson 84509.1.[address] 3.430.2.7 Hospit a .3.716652 l .8 2021-07-02 2021-07-02 Patient Josh, 1.2.840.1 [id number] 121630 3635 Methodi 00:00:00 00:00:00 Outreach Gr[place] [address]447.1.[address] 3.430.2.7 Hospit a .3.404814 l .8 2021-06-30 2021-07-01 [facility], 1.2.840.1 [id number] 36943 77607 Methodi 06:55:00 10:15:00 Encounter Helmi S 98856.1.[address] 3.430.2.7 Hospit a .3.881534 l .8 2021-06-30 2021-07-01 [facility], 1.2.840.1 [id number] 35048 51624 Methodi 06:55:00 10:15:00 Encounter Helmi S 42005.1.[address] 3.430.2.7 Hospit a .3.549636 l .8 2021-06-30 2021-06-30 Surgery [facility], 1.2.840.1 [id number] 876288 6063 Methodi 09:00:00 13:05:00 Helmi S 88249.1.[address] 3.430.2.7 Hospit a .3.083695 l .8 2021-06-30 2021-06-30 Surgery Valerie, 1.2.840.1 [id number] 357627 0494 Methodi 09:00:00 13:05:00 Magy S 32423.1.[address] 3.430.2.7 Hospit a .3.086194 l .8 2021-06-30 2021-06-30 Anesthesia Kasia Mora 1.2.840.1 1 [id number] Methodi 09:19:00 12:52:00 Event Cheli Zehra Flower 56538.1.[address] 3.430.2.7 Hospit a .3.879469 l .8 2021-06-30 2021-06-30 Anesthesia Kasia Mora 1.2.840.1 1 [id number] Methodi 09:19:00 12:52:00 Event CheliZehra 24456.1.[address] 3.430.2.7 Hospit a .3.912606 l .8 2021-06-30 2021-06-30 Travel 1.2.840.1 1.2.693.097 4838 280312 Methodi 00:00:00 00:00:[address] 3.430.2.7 0.2.7.3.698 Ho spita .3.512051 084.8 l .8 2021-06-30 2021-06-30 Travel 1.2.840.1 1.2.793.687 5461 763387 Methodi 00:00:00 00:00:[address] 3.430.2.7 0.2.7.3.698 Ho spita .3.603471 084.8 l .8 2021-06-29 2021-06-29 Telephone Valerie, 1.2.840.4 [id number] 311 [id number] Methodi 00:00:00 00:00:00 Magy S 81272.1.[address] 3.430.2.7 Hospit a .3.914191 l .8 2021-06-29 2021-06-29 [place] Valerie, 1.2.840.6 [id number] 357 [id number] Methodi 00:00:00 00:00:00 Helmi S 60172.1.[address] 3.430.2.7 Hospit a .3.864773 l .8 2021-06-15 2021-06-15 Lab Valerie, 1.2.840.1 [id number] 059485 5371 Methodi 12:00:00 12:15:00 Helmi S 47300.1.[address] 3.430.2.7 Hospit a .3.665747 l .8 2021-06-15 2021-06-15 Lab Valerie, 1.2.840.1 [id number] 322167 2680 Methodi 12:00:00 12:15:00 Helmi S 73679.1.[address] 3.430.2.7 Hospit a .3.074512 l .8 2021-06-15 2021-06-15 Travel 1.2.840.1 1.2.241.563 1063 150452 Methodi 00:00:00 00:00:[address] 3.430.2.7 0.2.7.3.698 Ho spita .3.498892 084.8 l .8 2021-06-15 2021-06-15 Travel 1.2.840.1 1.2.036.620 4243 055400 Methodi 00:00:00 00:00:[address] 3.430.2.7 0.2.7.3.698 Ho spita .3.270250 084.8 l .8 2021-06-12 2021-06-12 Prep for Knowles, 1.2.840.0 [id number] 21 [id number] Methodi 00:00:00 00:00:00 Surgery Saprina 84698.1.[address] 3.430.2.7 Hospit a .3.899800 l .8 2021-06-12 2021-06-12 Prep for Benson, 1.2.840.3 [id number] 21 [id number] Methodi 00:00:00 00:00:00 Surgery Saprina 73259.1.[address] 3.430.2.7 Hospit a .3.125429 l .8 2021-06-12 2021-06-12 (TEL) STLMLC STLMLC [id number] Co mmon 00:00:00 00:00:00 [facility] 2021-06-08 2021-06-08 Telephone Benson, 1.2.840.9 [id number] 2 [id number] Methodi 00:00:00 00:00:[address] 3.430.2.7 Hospit a .3.675170 l .8 2021-06-08 2021-06-08 Telephone Benson, 1.2.840.2 [id number] 2 [id number] Methodi 00:00:00 00:00:[address] 3.430.2.7 Hospit a .3.069277 l .8 2021-06-05 2021-06-05 OFFICE STLMLC STLMLC [id number] Co mmon 00:00:00 00:00:00 VISIT EST Spir it PT LEVEL [address] [place] [address] 2021-06-03 2021-06-03 (TEL) STLMLC STLMLC [id number] Co mmon 00:00:00 00:00:00 [facility] 2021-06-02 2021-06-02 Pre-Admiss Magy Dye S 1.2.840.1 06286 1124 [id number] Methodi 09:20:00 10:20:00 Zehra Gupta 17982.1.[address] Testing 3.430.2.7 Hospit a .3.831164 l .8 2021-06-02 2021-06-02 Pre-Admiss Valerei Helmi S 1.2.840.1 22880 1124 [id number] Methodi 09:20:00 10:20:00 Zehra Gupat 14683.1.[address] Testing 3.430.2.7 Hospit a .3.283160 l .8 2021-06-02 2021-06-02 Travel 1.2.840.1 1.2.358.892 4703 644326 Methodi 00:00:00 00:00:[address] 3.430.2.7 0.2.7.3.698 Ho spita .3.281463 084.8 l .8 2021-06-02 2021-06-02 Travel 1.2.840.1 1.2.088.197 5678 289763 Methodi 00:00:00 00:00:[address] 3.430.2.7 0.2.7.3.698 Ho spita .3.220202 084.8 l .8 2021-06-01 2021-06-01 Telephone Knowles, 1.2.840.3 [id number] 2 [id number] Methodi 00:00:00 00:00:[address] 3.430.2.7 Hospit a .3.577826 l .8 2021-06-01 2021-06-01 Telephone Benson, 1.2.840.1 [id number] 2 [id number] Methodi 00:00:00 00:00:[address] 3.430.2.7 Hospit a .3.582932 l .8 2021-05-28 2021-05-28 (TEL) [facility] [id number] Co mmon 00:00:00 00:00:00 [facility] 2021-05-27 2021-05-27 Emergency Eathompson, 1.2.840.1 [id number] 2100 748964 Methodi 15:07:00 19:44:[address] 3.430.2.7 Hospit a .3.815317 l .8 2021-05-27 2021-05-27 Emergency [facility], 1.2.840.1 [id number] 2100 179665 Methodi 15:07:00 19:44:[address] 3.430.2.7 Hospit a .3.162924 l .8 2021-05-27 2021-05-27 [facility], 1.2.840.1 [id number] Methodi 11:50:11 15:06:00 Encounter Magy S 96713.1.[address] 3.430.2.7 Hospit a .3.555047 l .8 2021-05-27 2021-05-27 [facility], 1.2.840.1 [id number] 64 Methodi 11:50:11 15:06:00 Encounter Magy S 76390.1.[address] 3.430.2.7 Hospit a .3.424554 l .8 2021-05-27 2021-05-27 Office [facility], 1.2.840.8 [id number] Methodi 14:00:00 14:43:59 Visit Helcristiano S 06320.1.[address] 3.430.2.7 Hospit a .3.062221 l .8 2021-05-27 2021-05-27 Office [facility], 1.2.840.0 [id number] Methodi 14:00:00 14:43:59 Visit Magy S 60737.1.[address] 3.430.2.7 Hospit a .3.884950 l .8 2021-05-26 2021-05-26 Travel 1.2.840.1 1.2.423.965 0332 676985 Methodi 00:00:00 00:00:[address] 3.430.2.7 0.2.7.3.698 Ho spita .3.512857 084.8 l .8 2021-05-26 2021-05-26 Travel 1.2.840.1 1.2.623.744 2898 831485 Methodi 00:00:00 00:00:[address] 3.430.2.7 0.2.7.3.698 Ho spita .3.788097 084.8 l .8 2021-05-25 2021-05-25 Orders Besnon 1.2.840.4 [id number] 068 7085125 Methodi 00:00:00 00:00:00 Only Saprina 81402.1.[address] 3.430.2.7 Hospit a .3.866920 l .8 2021-05-25 2021-05-25 Orders Benson 1.2.840.3 [id number] 965 7942515 Methodi 00:00:00 00:00:00 Only Saprina 09434.1.[address] 3.430.2.7 Hospit a .3.052918 l .8 2021-05-25 2021-05-25 Orders Benson 1.2.840.9 [id number] 072 9945907 Methodi 00:00:00 00:00:00 Only Saprina 39614.1.[address] 3.430.2.7 Hospit a .3.451616 l .8 2021-05-25 2021-05-25 Orders Benson 1.2.840.4 [id number] 197 7058336 Methodi 00:00:00 00:00:00 Only Saprina 94360.1.[address] 3.430.2.7 Hospit a .3.470722 l .8 2021-05-25 2021-05-25 (TEL) STLMLC STLMLC [id number] Co mmon 00:00:00 00:00:00 [facility] 2021-05-21 2021-05-21 (TEL) STLMLC STLMLC [id number] Co mmon 00:00:00 00:00:00 [facility] 2021-05-21 2021-05-21 (TEL) STLMLC STLMLC [id number] Co mmon 00:00:00 00:00:00 [facility] 2021-05-20 2021-05-20 Orders Doctor BETH 1.2.840.114 [id number] Univers 00:00:00 00:00:00 Only Unassigned, BHUPINDER 350.1.13.10 ity of [place] [facility] 4.2.7.2.686 Russ as [phone] [facility] [address] 2021-05-12 2021-05-12 (TEL) STLC STLMLC [id number] Co mmon 00:00:00 00:00:00 [facility] 2021-05-08 2021-05-08 Travel 1.2.840.1 1.2.111.672 4046 448647 Methodi 00:00:00 00:00:[address] 3.430.2.7 0.2.7.3.698 Ho spita .3.115599 084.8 l .8 2021-05-08 2021-05-08 Travel 1.2.840.1 1.2.878.130 9471 625036 Methodi 00:00:00 00:00:[address] 3.430.2.7 0.2.7.3.698 Ho spita .3.565824 084.8 l .8 2021-05-08 2021-05-08 (TEL) STLMLC STLMLC [id number] Co mmon 00:00:00 00:00:00 [facility] 2021-04-30 2021-04-30 (TEL) STLMLC STLMLC [id number] Co mmon 00:00:00 00:00:00 [facility] 2021-04-21 2021-04-21 OFFICE STLC STLMLC [id number] Co mmon 00:00:00 00:00:00 VISIT [facility] ESTAB PT - CHI LEVEL 4 [facility] 2021-04-21 2021-04-21 SUB ANNUAL STLC STLMLC [id number] Common 00:00:00 00:00:00 MCR [facility] WELLNESS - CHI VISIT [facility] 2021-03-25 2021-03-25 (TEL) STLMLC STLMLC [id number] Co mmon 00:00:00 00:00:00 [facility] 2021-03-14 2021-03-14 Letter BETH George 1.2.840.114 [id number] Univers 00:00:00 00:00:00 (Out) Lindsey ROE 350.1.13.10 it y of [facility] 4.2.7.2.686 Russ as [phone] [address] 2021-03-13 2021-03-13 Laboratory Only, Ang Db Test [facility] 1.2.8 40.114 [id number] Univers 09:30:00 09:45:00 Only Sade Rachel J HEALTH 350.1.13.10 ity of [place] 4.2.7.2.686 Russ as TWYLA?BLEA [phone] [address] MEDICAL OFFICE BUILDING 2021-03-13 2021-03-13 Outpatient R ISABELL [facility] [id number] Univers 09:30:00 09:30:00 SADE ciroy o f [facility] 2021-03-06 2021-03-06 OFFICE STLMLC STLMLC [id number] Co mmon 00:00:00 00:00:00 VISIT EST Spir it PT LEVEL 3 - [facility] 2021 2021 Laboratory Only, Ang Db Test [facility] 1.2.8 40.114 [id number] Univers 14:15:00 14:30:00 Only April Wheatley 350.1.13.10 ity [facility] 4.2.7.2.686 Russ as TWYLA?BLEA [phone] [address] MEDICAL OFFICE BUILDING 2021 2021 Outpatient R CORRY [facility] [id number] Univers 14:20:00 14:20:00 APRIL ity [facility] 2021 2021 Outpatient R CORRY [facility] [id number] Univers 14:15:00 14:15:00 APRIL ity [facility] 2021-01-20 2021-01-20 (TEL) STLMLC STLMLC [id number] Co mmon 00:00:00 00:00:00 [facility] 2021-01-19 2021-01-19 OFFICE STLMLC STLMLC [id number] Co mmon 00:00:00 00:00:00 VISIT [facility] ESTAB PT - [facility]I LEVEL 4 [facility] 2020-12-11 2020-12-11 (HOSP F/U) STLMLC STLMLC [id number] Common 00:00:00 00:00:00 Hospital Spiri t Follow Up - [facility] 2020-12-09 2020-12-09 Hospital Radiology [facility] 1.2.840.114 [id number] Univers 10:18:07 23:59:00 Encounter SPECIALTY 350.1.13.10 it[place] AT [phone] [address] 2020-12-09 2020-12-09 Outpatient R RADIOLOGY [facility] [id number] Univers 00:00:00 00:00:00 ity of [facility] 2020-12-04 2020-12-04 Transition Placido Bates 1.2.840.114 [id number] [id number] Univers 00:00:00 00:00:00 of Care Loretocecily Lewis 350.1.13.10 it y of [phone] [address] [address] 2020-12-02 2020-12-03 Emergency David Maldonado F [facility] 1.2. 840.114 [id number] Univers 11:43:00 09:15:00 [place], [place] [facility] 350.1.13.10 ity [place]2.[place] [facility] [phone] [address] ([facility]) 2020-12-02 2020-12-02 Hospital Radiology [facility] 1.2.840.114 [id number] Univers 09:55:07 11:42:00 Encounter SPECIALTY 350.1.13.10 ity of [place] C[place] AT [phone] Ma dical VICTORY [address] [facility] 2020-12-02 2020-12-02 Outpatient R RADIOLOGY [facility] [id number] Univers 00:00:00 00:00:00 ity of [facility] 2020-11-06 2020-11-06 Outpatient R RADIOLOGY [facility] [id number] Univers 00:00:00 00:00:00 ity of [facility] 2020-10-23 2020-10-23 Hospital Radiology [facility] 1.2.840.114 [id number] Univers 07:53:07 23:59:00 Encounter [place] 350.1.13.10 ity of [place] 4.2.7.2.686 [facility] [phone] [address] 2020-10-23 2020-10-23 Outpatient R RADIOLOGY [facility] [id number] Univers 00:00:00 00:00:00 ity of [facility] 2020-10-20 2020-10-20 Outpatient R RADIOLOGY [facility] [id number] Univers 00:00:00 00:00:00 ity of [facility] 2019-04-11 2019-04-11 Outpatient Stacie-Mbayo VFP VFP [phone] [facility] 07:17:00 07:17:00 _A_ 14271 Family Practic e 2019-03-16 2019-03-16 Office [facility] 1.2.021.659 [id number] 7959 Univers 08:35:47 09:05:54 Visit Cal Glover [facility] 350.1.13.10 it y of Surgical 4.2.7.2.686 Russ as Special [phone] Ma dical es 198 [facility] 2019-03-14 2019-03-14 [facility] 1.2.840.114 [id number] Univers 15:00:00 23:59:00 Encounter Cal Milner 350.1.13.10 ity of [place] 4.2.7.2.686 [facility] [phone] [address] 2019-03-13 2019-03-13 Telephone [facility] 1.2.840.114 [id number] Univers 00:00:00 00:00:00 [facility] 350.1.13.10 it y of Surgical 4.2.7.2.686 Russ as Specialti [phone] Ma dical es [address] [place] Results Test Description Test Time Test Comments Results Result Comments Source Surgical pathology request 2021-07-10 15:41:27 Test Item Value Reference Range Interpretation Comme nts Case number (test code = 7613072) [id number] Surgical pathology report (test code = See link below for PDF Lab R eport 2255) Result status (test code = 5426148) This is Final Report for [id number] 8934-4 [facility] [id number] 15:41:27 Test Item Value Reference Range Interpretation Comments Case number (test code = [id number]) Surgical pathology See link below for report (test code = PDF Lab Report 2255) Result status (test code This is Final Report = [id number]) [id number] [facility] qualitative [id number] 02:23:20 Test Item Value Reference Range Interpretation Comments COVID-19 variant Omicron The SARS-Co V-2 N result (test code = gene and ORF1ab 21468-2) gene but not th e S gene were detected. This pattern is suggestive of t he SARS-CoV-2 omic fransisco variant. COVID-19 Omicron See link below Case Numb er: variant qualitative for PDF Lab [id number] RT-PCR (test code = Report 8190) [facility] qualitative [id number] 02:23:20 Test Item Value Reference Range Interpretation Comments COVID-19 variant Omicron The SARS-Co V-2 N result (test code = gene and ORF1ab 85315-6) gene but not th e S gene were detected. This pattern is suggestive of t he SARS-CoV-2 omic fransisco variant. COVID-19 Omicron See link below Case Numb er: variant qualitative for PDF Lab [id number] RT-PCR (test code = Report 8190) [facility] [id number] 23:53:07 Test Item Value Reference Range Interpretation Comments Interpretation (test Positive results are code = 3847287) indicative of active infection with COVID-19 but do notrule out bacterial infection or coinfection with other viruses. The agentdetected may not be the definite cause of disease. In addition to reinfectionor new infection, positive results following COVID-19 recovery may be causedby residual viral nucleic acid fragments persisting in the upper respiratorytract, subgenomic particles, or other factors associated with noninfectiousvirus. Clinical correlation is recommended. COVID-19 qualitative Detected Not-Detected A RT-PCR result (test code = 44786-6) COVID-19 qualitative See link below for C ase Number: RT-PCR (test code = PDF Lab Report [id number]) Lab Interpretation Abnormal (test code = 59914-4) [facility] [id number] 23:53:07 Test Item Value Reference Range Interpretation Comments Interpretation (test Positive results are code = 8598727) indicative of active infection with COVID-19 but do notrule out bacterial infection or coinfection with other viruses. The agentdetected may not be the definite cause of disease. In addition to reinfectionor new infection, positive results following COVID-19 recovery may be causedby residual viral nucleic acid fragments persisting in the upper respiratorytract, subgenomic particles, or other factors associated with noninfectiousvirus. Clinical correlation is recommended. COVID-19 qualitative Detected Not-Detected A RT-PCR result (test code = 28101-7) COVID-19 qualitative See link below for C ase Number: RT-PCR (test code = PDF Lab Report [id number] 9306) Lab Interpretation Abnormal (test code = 66421-2) [facility] (COVID-19) RNA [Presence] in Respiratory specimen by JERRELL with probe [id number] 18:53:07 Test Item Value Reference Range Interpretation Comments SARS-CoV-2 (COVID-19) RNA [Presence] Detected in Respiratory specimen by JERRELL with probe detection (test code = 55108-3) Whether patient is employed in a Unknown healthcare setting (test code = 59049-2) Whether the patient has symptoms Unknown related to condition of interest (test code = 21063-5) Whether the patient was hospitalized Unknown for condition of interest (test code = 90285-3) Whether the patient was admitted to Unknown intensive care unit (ICU) for condition of interest (test code = 83889-7) Whether patient resides in a Unknown congregate care setting (test code = 31921-3) status (test code = Unknown 06396-8) Date and time of symptom onset (test Unknown code = 48133-6) [place] [address] [id number] 02:53:12 Test Item Value Reference Range Interpretation Comments Ventricular rate (test code = 253) Atrial rate (test code = 255) [place] interval (test code = 266) QRSD interval (test code = 260) QT interval (test code = 264) QTC interval (test code = 265) P axis 1 (test code = 267) QRS axis 1 (test code = 268) T wave axis (test code = 270) EKG impression (test Sinus code = 273) bradycardia-Otherwise normal ECG-No previous ECGs available-Electronica lly Signed By Ofelia Mckenna MD ([id number]) on 05/27/2021 9:53:10 PM [place] [address] [id number] 02:53:12 Test Item Value Reference Range Interpretation Comments Ventricular rate (test code = 253) Atrial rate (test code = 255) [place] interval (test code = 266) QRSD interval (test code = 260) QT interval (test code = 264) QTC interval (test code = 265) P axis 1 (test code = 267) QRS axis 1 (test code = 268) T wave axis (test code = 270) EKG impression (test Sinus code = 273) bradycardia-Otherwise normal ECG-No previous ECGs available-Electronica lly Signed By Ofelia Mckenna MD ([id number]) on 05/27/2021 9:53:10 PM [facility] [id number] 17:20:00 Test Item Value Reference Range Interpretation Comments POC creatinine (test 0.9 mg/dl 0.5-0.9 Operato r Name: Gross code = 55131-2) Tom e ID: [id number] [facility] [id number] 17:20:00 Test Item Value Reference Range Interpretation Comments POC creatinine (test 0.9 mg/dl 0.5-0.9 Operato r Name: Gross code = 33813-2) Tom e ID: [id number] [facility]2021-01-05 00:00:00 Test Item Value Reference Range Interpretation Comments GLUCOSE (test code = 80 65-139 2345-7) UREA NITROGEN (BUN) 17 7-25 (test code = 3094-0) CREATININE (test code = 0.99 0.60-0.93 2160-0) eGFR NON-AFR. SWEDISH 57 See_Comment [Aut omated message] The (test code = 59108-1) system which generated this result tra nsmitted reference range : > OR = 60. The referen ce range was not used to interpret this result as normal/abnormal . eGFR 66 See_Comment [Auto mated message] The (test code = 20270-2) system which generated this result tra nsmitted reference range : > OR = 60. The referen ce range was not used to interpret this result as normal/abnormal . BUN/CREATININE RATIO 17 6-22 (test code = 3097-3) SODIUM (test code = 140 755-376 8078-2) POTASSIUM (test code = 4.2 3.5-5.3 2823-3) CHLORIDE (test code = 105 98-110 5-0) CARBON DIOXIDE (test 30 20-32 code = 2027-) CALCIUM (test code = 10.5 8.6-10.4 01156-7) PROTEIN, TOTAL (test 6.5 6.1-8.1 code = 2885-2) ALBUMIN (test code = 4.1 3.6-5.1 1751-7) GLOBULIN (test code = 2.4 1.9-3.7 26288-8) ALBUMIN/GLOBULIN RATIO 1.7 1.0-2.5 (test code = 1759-0) BILIRUBIN, TOTAL (test 0.5 0.2-1.2 code = 1974-2) ALKALINE PHOSPHATASE 111 37-153 (test code = 6768-6) AST (test code = 1920-8) 27 10-35 ALT (test code = 1742-6) 16 6-29
[2022-03-09 02:22] LABS: Absolute Lymphocytes (CBC) 1.8 K/uL (0.7-4.9); Hematocrit 35.6 % (36.0-45.0); Lymphocytes % 32.8 % (15.3-44.8); MCV 80.4 fL (80-100); MPV 7.2 fL (7.6-11.3); RBC Red Blood Cell Count 4.43 M/uL (3.86-4.86)
[2022-03-09 02:24] LABS: Protime INR 0.94
[2022-03-09 02:49] LABS: Magnesium 2.1 mg/dL (1.6-2.4); Potassium 3.9 mmol/L (3.5-5.1); Troponin High Sensitivity 10.8 pg/mL (<58.9)
--- NOTE | 2022-03-09 03:01 | EDPHYS ---
Physician Documentation [facility] Name: Vandana Gar Age: 72 yrs Sex: Female : 1950 Arrival Date: 03/09/2022 Time: 01:23 Bed 16 Private MD: ED Physician Pavel Powers HPI: 03/09 03:00 This 72 yrs old Female presents to ER via Ambulatory with complaints of High Blood rn Pressure. 03:00 The patient has elevated blood pressure and discovered this at home. Onset: The rn symptoms/episode began/occurred 2 week(s) ago. Modifying factors: The symptoms are alleviated by prescription meds, beta-aries. Associated signs and symptoms: Pertinent negatives: chest pain, dizziness, dyspnea, headache, lightheadedness, nausea, visual changes, vomiting, weakness. Severity of symptoms: At its worst the blood pressure was severe, in the emergency department the blood pressure is improved. The patient has experienced similar episodes in the past. The patient has not recently seen a physician. Reports had COVID 2 weeks ago, since then elevated BP. Prescribed labetalol as rescue BP medication in addition to her 2 scheduled BP meds. Has been taking the labetalol daily for last 3 days and today didn't lower her BP so came in for evaluation. Denies stroke like symptoms, no chest pain/sob/abd pain. Reports has done this before, comes in, told labs normal and goes home. . Historical: - Allergies: 01:34 hydralazine; bb 01:34 nitroglycerin; bb - Home Meds: 01:34 labetolol [Active]; amlodipine oral [Active]; losartan oral [Active]; pantoprazole oral bb [Active]; calcium [Active]; iron [Active]; vitamin [Active]; - PMHx: 01:34 Hypertension; bb - PSHx: 01:34 hernia; parathyroid gland and half of thyroid; hysterctomy; bb - Immunization history:: Client reports receiving the 2nd dose of the Covid vaccine, Moderna. - Social history:: Smoking status: Patient denies any tobacco usage or history of. - Family history:: not pertinent. - Hospitalizations: : No recent hospitalization is reported. ROS: 03:00 Constitutional: Negative for fever, chills, and weight loss, Eyes: Negative for injury, rn pain, redness, and discharge, Neck: Negative for injury, pain, and swelling, Cardiovascular: Negative for chest pain, palpitations, and edema, Respiratory: Negative for shortness of breath, cough, wheezing, and pleuritic chest pain, Abdomen/GI: Negative for abdominal pain, nausea, vomiting, diarrhea, and constipation, Back: Negative for injury and pain, MS/Extremity: Negative for injury and deformity, Skin: Negative for injury, rash, and discoloration, Neuro: Negative for weakness, numbness, tingling, and seizure. Exam: 03:00 Constitutional: This is a well developed, well nourished patient who is awake, alert, rn and in no acute distress. Head/Face: Normocephalic, atraumatic. Eyes: Pupils equal round and reactive to light, extra-ocular motions intact. Lids and lashes normal. Conjunctiva and sclera are non-icteric and not injected. Cornea within normal limits. Periorbital areas with no swelling, redness, or edema. Neck: Supple, full range of motion without nuchal rigidity, or vertebral point tenderness. No Meningismus. Cardiovascular: Bradycardic, regular Respiratory: No increased work of breathing, no retractions or nasal flaring. Abdomen/GI: Soft, non-tender Skin: Warm, dry with normal turgor. Normal color with no rashes, no lesions, and no evidence of cellulitis. MS/ Extremity: Pulses equal, no cyanosis. Neurovascular intact. Full, normal range of motion. Equal circumference. Neuro: Awake and alert, GCS 15, oriented to person, place, time, and situation. Cranial nerves II-XII grossly intact. Motor strength 5/5 in all extremities. Sensory grossly intact. Cerebellar exam normal. Vital Signs: 01:32 BP 209 / 85; Pulse 62; Resp 18 S; Temp 98.5(O); Pulse Ox 100% ; Weight 65.77 kg (R); bb Height 5 ft. 3 in. (160.02 cm) (R); Pain 2/10; 02:16 BP 153 / 69; Pulse 51; Resp 12 S; Pulse Ox 99% on R/A; as6 03:09 BP 131 / 62; Pulse 46; Resp 14 S; Pulse Ox 98% on R/A; as6 01:32 Body Mass Index 25.69 (65.77 kg, 160.02 cm) bb MDM: 01:23 Patient medically screened. rn 02:56 Independent interpretation of the following test(s) in the Emergency Department EKG: rn See my EKG interpretation above X-Ray: My interpretation is CXR neg for acute infiltrate or pneumothorax. 03:00 Differential diagnosis: hypertensive crisis, Malignant HTN, anxiety. Differential rn diagnosis: secondary effects of COVID. Data reviewed: vital signs, nurses notes. Test considered but Not performed: Other Details CT head considered but no acute focal neurological deficits. . Care significantly affected by the following chronic conditions: Hypertension. Counseling: I had a detailed discussion with the patient and/or guardian regarding: the historical points, exam findings, and any diagnostic results supporting the discharge/admit diagnosis, the presence of at least one elevated blood pressure reading (>120/80) during this emergency department visit, lab results, radiology results, the need for outpatient follow up, to return to the emergency department if symptoms worsen or persist or if there are any questions or concerns that arise at home. Response to treatment: the patient's symptoms have markedly improved after treatment, and as a result, I will discharge patient. Special discussion: I discussed with the patient/guardian in detail that at this point there is no indication for admission to the hospital. It is understood, however, that if the symptoms persist or worsen the patient needs to return immediately for re-evaluation. Based on the history and exam findings, there is no indication for further emergent testing or inpatient evaluation. I discussed with the patient/guardian the need to see the pharmacy clinical specialist for further evaluation of the symptoms. I discussed with the patient/guardian the need to see the primary care provider for further evaluation of the symptoms. 03/09 01:58 Order name: Basic Metabolic Panel; Complete Time: 02:54 rn 03/09 02:55 Interpretation: Normal except: CL 109; GLUC 121. rn 03/09 01:58 Order name: CBC with Diff; Complete Time: 02:54 rn 03/09 02:55 Interpretation: Normal except: HGB 11.7; HCT 35.6. rn 03/09 01:58 Order name: Magnesium; Complete Time: 02:54 rn 03/09 02:55 Interpretation: Within normal limits: MG 2.1. rn 03/09 01:58 Order name: NT PRO-BNP; Complete Time: 02:54 rn 03/09 01:58 Order name: PT-INR; Complete Time: 02:54 rn 03/09 01:58 Order name: Troponin HS; Complete Time: 02:54 rn 03/09 02:55 Interpretation: Within normal limits. rn 03/09 01:58 Order name: XRAY Chest (1 view) rn 03/09 01:58 Order name: EKG; Complete Time: 01:58 rn 03/09 01:58 Order name: Cardiac monitoring; Complete Time: 02:05 rn 03/09 01:58 Order name: EKG - Nurse/Tech; Complete Time: 02:05 rn 03/09 01:58 Order name: IV Saline Lock; Complete Time: 02:14 rn 03/09 01:58 Order name: Labs collected and sent; Complete Time: 02:14 rn 03/09 01:58 Order name: O2 Per Protocol; Complete Time: 02:05 rn 03/09 01:58 Order name: O2 Sat Monitoring; Complete Time: 02:05 rn Administered Medications: No medications were administered Disposition Summary: 03/09/22 03:00 Discharge Ordered Location: Home rn Problem: an ongoing problem rn Symptoms: have improved rn Condition: Stable rn Diagnosis - Essential (primary) hypertension rn Followup: rn - With: Private Physician - When: 2 - 3 days - Reason: Recheck today's complaints, Continuance of care, Re-evaluation by your physician Discharge Instructions: - Discharge Summary Sheet rn - Hypertension, Adult rn - Managing Your Hypertension rn Forms: - Medication Reconciliation Form rn - Thank You Letter rn - Antibiotic international sourcing manager - Prescription Opioid Use rn Signatures: Dispatcher [employer] Leila Ayala RN RN Pavel Brian MD MD rn
--- NOTE | 2022-03-09 03:01 | ER ---
Nurse's Notes [facility] Name: Vandana Gar Age: 72 yrs Sex: Female : 1950 Arrival Date: 03/09/2022 Time: 01:23 Bed 16 Private MD: Diagnosis: Essential (primary) hypertension Presentation: 03/09 01:32 Chief complaint: Patient states: her blood pressure has been up and down for a few days bb but tonight it was high in the 200s systolic she took her labetolol tonight but it did not help and her BP is still high. Coronavirus screen: At this time, the client does not indicate any symptoms associated with coronavirus-19. Ebola Screen: No symptoms or risks identified at this time. Initial Sepsis Screen: Does the patient meet any 2 criteria? No. Patient's initial sepsis screen is negative. Does the patient have a suspected source of infection? No. Patient's initial sepsis screen is negative. Risk Assessment: Do you want to hurt yourself or someone else? Patient reports no desire to harm self or others. Onset of symptoms was March 09, 2022. 01:32 Method Of Arrival: Ambulatory bb 01:32 Acuity: LEIDA 2 bb Historical: - Allergies: 01:34 hydralazine; bb 01:34 nitroglycerin; bb - Home Meds: 01:34 labetolol [Active]; amlodipine oral [Active]; losartan oral [Active]; pantoprazole oral bb [Active]; calcium [Active]; iron [Active]; vitamin [Active]; - PMHx: 01:34 Hypertension; bb - PSHx: 01:34 hernia; parathyroid gland and half of thyroid; hysterctomy; bb - Immunization history:: Client reports receiving the 2nd dose of the Covid vaccine, Moderna. - Social history:: Smoking status: Patient denies any tobacco usage or history of. - Family history:: not pertinent. - Hospitalizations: : No recent hospitalization is reported. Screenin:16 [facility] ED Fall Risk Assessment (Adult) Score/Fall Risk Level 0 - 2 = Low Risk. Abuse as6 screen: Denies threats or abuse. Denies injuries from another. Nutritional screening: No deficits noted. Tuberculosis screening: No symptoms or risk factors identified. Assessment: 02:15 General: Appears in no apparent distress. Behavior is calm, cooperative. Pain: Denies as6 pain. Neuro: Level of Consciousness is awake, alert, obeys commands, Oriented to person, place, time, situation. Cardiovascular: Capillary refill < 3 seconds Patient's skin is warm and dry. Respiratory: Respiratory effort is even, unlabored, Respiratory pattern is regular, symmetrical. Derm: Skin is intact, is healthy with good turgor. Vital Signs: 01:32 BP 209 / 85; Pulse 62; Resp 18 S; Temp 98.5(O); Pulse Ox 100% ; Weight 65.77 kg (R); bb Height 5 ft. 3 in. (160.02 cm) (R); Pain 2/10; 02:16 BP 153 / 69; Pulse 51; Resp 12 S; Pulse Ox 99% on R/A; as6 03:09 BP 131 / 62; Pulse 46; Resp 14 S; Pulse Ox 98% on R/A; as6 01:32 Body Mass Index 25.69 (65.77 kg, 160.02 cm) bb ED Course: 01:23 Patient arrived in ED. ag3 01:23 Pavel Powers MD is Attending Physician. rn 01:34 Triage completed. bb 01:34 Arm band placed on Patient placed in an exam room, on a stretcher, on pulse oximetry. bb Family accompanied patient. 01:45 Pawan Fontaine, FLOYD is Primary Nurse. as6 02:16 Placed in gown. Bed in low position. Call light in reach. Adult w/ patient. Client as6 placed on continuous cardiac and pulse oximetry monitoring. NIBP monitoring applied. Warm blanket given. 02:16 Inserted saline lock: 20 gauge in left antecubital area, using aseptic technique. Blood as6 collected. 03:02 No provider procedures requiring assistance completed. as6 03:09 IV discontinued, intact, bleeding controlled, No redness/swelling at site. Pressure as6 dressing applied. 04:52 XRAY Chest (1 view) In Process Unspecified. EDMS Administered Medications: No medications were administered Medication: 02:16 VIS not applicable for this client. as6 Outcome: 03:00 Discharge ordered by . rn 03:09 Discharged to home ambulatory, with significant other. as6 03:09 Condition: stable 03:09 Discharge instructions given to patient, significant other, Instructed on discharge instructions, follow up and referral plans. Demonstrated understanding of instructions, follow-up care. 03:09 Patient left the ED. as6 Signatures: Dispatcher [employer] Leila Ayala, RN RN Pavel Brian MD MD rn Gomez, Alice ag3 Pawan Fontaine RN RN as6
[2022-03-09 03:18] VITALS: TEMP 98.5
[2022-03-09 03:20] VITALS: BP 131/62; O2SAT 98
--- NOTE | 2022-03-09 07:35 | EKG ---
Test Date: 2022-03-09 Test Time: 01:59:18 Baked And Graphite Inspector: SHAWN MEASUREMENT RESULTS: Intervals: Rate: 50 WV: 160 QRSD: 84 QT: 454 QTc: 413 [place]: P: 48 WV: 160 QRS: -56 T: 93 INTERPRETIVE STATEMENTS: Sinus bradycardia Left anterior fascicular block Nonspecific ST abnormality Abnormal QRS-T angle, consider primary T wave abnormality Abnormal ECG Compared to ECG 03/31/2021 13:59:32 Left anterior fascicular block now present ST (T wave) deviation now present T-wave abnormality now present Sinus rhythm no longer present Electronically Signed On 03-09-22 07:34:47 INFORMATION SECURITY SYSTEMS INSTRUCTOR by German Parry
--- NOTE | 2022-03-09 14:45 | RAD REPORT ---
EXAM DESCRIPTION: RAD - Chest Single View - 03/09/2022 4:50 am CLINICAL HISTORY: 72 years Female hypertension COMPARISON: None FINDINGS: Lung volumes adequate. Cardiac silhouette is normal. No pneumothorax. No large pleural effusion. No focal consolidation. No acute bony finding. IMPRESSION: No acute cardiopulmonary findings. Electronically signed by: Gerber Miller MD 03/09/2022 4:59 AM CLINICAL PROJECT LEADER Due to temporary technical issues with the PACS/Fluency reporting system, reports are being signed by the in house radiologists without review as a courtesy to insure prompt reporting. The interpreting radiologist is fully responsible for the content of the report.
== END 2022-03-09 03:09 | disposition home or self-care (01) ==
LOC: ER 01:19
DX: I10 Essential (primary) hypertension (principal); Z88.8 Allergy status to other drugs, medicaments and biological substances
CPT/HCPCS: 36415; 71045; 80048; 83735; 83880; 84484; 85025; 85610; 93005